=== PATIENT | female | born 1935 | race Caucasian/White ===

== ENCOUNTER 2016-06-13 07:45 | Day surgery (SDC) | payer MEDICARE, OTHER ==
[~2016-06-13] VITALS: Ht 149.9 cm; Wt 63.3 kg
[~2016-06-13 07:45] MED LIST: ASCO-296 PO; ASPI-611 PO; BISO1TAB PO; CALC-586 PO; LIDOCAINE 1% (10mg/ml) 2ml SDV INJ ONE; LR 1,000 ML IV PRN; MULT1CAP47 PO; NIFE60TA11 PO; OMEP20CA10 PO; PRAV20TA48 PO
--- OUTSIDE RECORDS SUMMARY | 2016-06-13 07:49 | XMS REPORT | Continuity of Care Document ---
Author Author Adeel PEÑA, Kimberly Cruz Organization [facility] Address [address] [place] [address] Phone Care Team Providers Care Office Administration Instructor Name Role Phone Reed, Dereck WILLIAM Unavailable Payers Payer name Insurance type Covered libertarian ID Authorization(s) Unknown Problems Condition Effective Dates (start - stop) Clinical Status Superficial thrombophlebitis - *Acute Edema - *Acute Symptomatic varicose veins - *Acute Hypertension - *Controlled Hypercholesterolemia - *Chronic VARICELLA UNCOMPLICATED - PURE HYPERCHOLESTEROLEM - ANEMIA NOS - 311 - DEPRESSIVE DISORDER NEC - CATARACT NOS - VARIC VEIN LEG,COMP NEC - EXT HEMORRHOID W/O COMPL - CONSTIPATION NOS - FEM STRESS INCONTINENCE - CRAMP IN LIMB - OSTEOPOROSIS NOS - MALAISE AND FATIGUE NEC - FX LUMBAR VERTEBRA-CLOSE - Other and unspecified hyperlipidemia - Chronic Hypertension, Benign - Chronic Radiculitis, Thoracic or Lumbar - Chronic 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 Backache - Chronic Age-related osteoporosis with current pathol fract - *Chronic Pathologic fracture of vertebrae - *Chronic Spinal stenosis - *Chronic Hypertension - *Chronic Hypercholesterolemia - *Chronic Atypical nevi - *Chronic Eczema - *Chronic Venous stasis dermatitis - *Chronic Hypertension - *Chronic Hypercholesterolemia - *Chronic Osteoporosis - *Chronic Benign neoplasm of skin of trunk, except scrotum - Other malignant neoplasm of skin of trunk, except scrotum - Basal cell cancer - *Chronic Atypical nevus - *Chronic Superficial phlebitis - *Acute GERD (gastroesophageal reflux disease) - *Acute Hypertension - *Chronic Elevated liver enzymes - *Acute Superficial phlebitis - *Acute Visit for suture removal - *Stable Backache - *Acute Radiculitis, Thoracic or Lumbar - *Acute Spinal stenosis of lumbar region - OldSymptomatic Lumbago - Improved Sciatica Due To Displacement Of Lumbar Disc - Improved Spinal stenosis of lumbar region - Improved Fx lumbar vertebra-closed - *Controlled Spinal stenosis of lumbar region - OldSymptomatic Radiculitis, Thoracic or Lumbar - *Acute History of hysterectomy - *Stable Hypertension, benign - *Chronic Hypercholesterolemia - *Chronic Osteoporosis - *Chronic Symptomatic varicose veins - *Chronic Tinea corporis - *Acute Adenomatous polyp of colon - *Stable Superficial phlebitis - Improved GERD (gastroesophageal reflux disease) - *Chronic Hypertension - *Chronic Elevated liver enzymes - *Resolved Family History Family Member Diagnosis Age At Onset Status Nephew (Unknown) CAD Yes Nephew (Unknown) IHSS Yes Father (Unknown) Cancer -leukemia Yes Cousin (Unknown) CAD Yes Family h/o (Unknown) Diabetes No Paternal uncle (Unknown) CAD Yes Mother (Unknown) Cancer -lymphoma Yes Cousin (Unknown) IHSS Yes Sister (Unknown) CHF Yes Family h/o (Unknown) Hypertension Yes Social History Social History Element Description Quantity Unknown Allergies, Adverse Reactions, Alerts Substance Reaction Severity Status ENOXAPARIN SODIUM elevated liver enzymes Unknown Medications Medication Instructions Dosage Effective Dates (start - stop) Status Anusol-HC 2.5 % rectal cream APPLY TO HEMORRHOIDS BID PRN. - Active aspirin 81 mg chewable tablet chew 1 tablet (81MG) by oral route every day 81 MG - Active Fish Oil (unknown strength) - Active iron ER 325 mg (65 mg iron) capsule,extended release take one tablet every day. - Active Adalat CC 60 mg tablet,extended release Take 1 tablet by mouth every day. - Active pravastatin 20 mg tablet Take 1 tablet by mouth at bedtime. - Active Ziac 2.5 mg-6.25 mg tablet Take 1 tablet by mouth daily - Active triamcinolone acetonide 0.1 % topical ointment apply by topical route 2 times every day a thin layer to the affected area(s) 0 - Active Klor-Con M20 mEq tablet,extended release take 1 tablet (20MEQ) by oral route every day with food 20 MEQ - Active Vitamin C 500 mg tablet take 1 Tablet by Oral route every day 0 2013 - Active Calcium with Vitamin D 600 mg (1,500 mg)-400 unit tablet take 1 Tablet by Oral route 3 times every week 0 - Active multivitamin capsule take 1 Tablet by Oral route 3 times every week 0 - Active Prilosec OTC 20 mg tablet,delayed release take 1 by Oral route every day - Active ibuprofen 200 mg tablet take 2 - 4Tablet (400MG) by oral route 2 times every day with food - Active Prolia 60 mg/mL subcutaneous syringe inject 60 Milligram by Subcutaneous route every 6 months 4th dose given 06/29/2013 0 - Active Immunizations Vaccine Date Status Comments flu (split) (3 yrs or older) completed - Completed reason: other provider flu (split) (3 yrs or older) completed - Completed reason: other provider Td (adult) completed - Completed reason: source unspecified Td (adult) completed - Completed reason: source unspecified pneumo (2 yrs or older) (PPV23) completed - Completed reason: source unspecified Zoster completed - Completed reason: source unspecified Results Test Name Date and Time Measure Units Reference Range Abnormal Flag Comments Panel Description: CBC WBC 14:58:00 4.2 1000/cmm 5.0-10.0 L RBC 14:58:00 4.00 mil/cmm 3.70-5.20 HGB 14:58:00 12.5 g/dL 12.0-16.0 HCT 14:58:00 36.5 % 37.0-47.0 L MCV 14:58:00 91.3 fL 80.0-96.0 MCH 14:58:00 31.3 pg 26.0-34.0 MCHC 14:58:00 34.2 g/dL 32.0-36.0 RDW 14:58:00 12.2 % 0.0-14.5 PLT 14:58:00 247 1000/cmm 150-400 SEG 14:58:00 71 % 50-70 H LYMPH 14:58:00 19 % 20-40 L MONO 14:58:00 10 % 4-8 H EOSIN 14:58:00 1 % <6 BASO 14:58:00 0 % <2 Panel Description: Protime Pt Type 14:58:00 BASIC Drug 14:58:00 No Meds Date-Time Last Meds 14:58:00 05/16/2013 2:49PM Protime-INR 14:58:00 1.0 Units Normal INR(no anticoagulant) 0.8-1.2 UnitsAbnormal INR (no anticoagulant) >1.2 UnitsRoutine Therapeutic INR 2.0-3.0 UnitsTherapeutic (High-Risk) INR 2.5-3.5 Units Vital Signs Date / Time: Height Weight Pulse Rate Blood Pressure Temperature /13:59:00 59.00 in 139.00 lbs 68 /min 104/62 mm[Hg] 99.2 F Procedures Procedure Date Unknown Encounters Encounter Location Date Patient Visit [facility] New FM Patient Visit Conversion Patient Visit [facility] FC Pain Patient Visit [facility] New FM Patient Visit [facility] FM [facility] Patient [facility] New FM Patient Visit [facility] New FM Patient Visit [facility] FM Patient Visit [facility] Patient Visit [facility] Pain Patient Visit [facility] Pain Patient Visit [facility] Pain Patient Visit [facility] FM Patient Visit [facility] FM Patient Visit [facility] New FM Patient Visit [facility] New FM Patient Visit [facility] Advance Directives Directive Effective Date Unknown
--- OUTSIDE RECORDS SUMMARY | 2016-06-13 07:49 | XMS REPORT | Continuity of Care Document ---
Author Author Adeel PEÑA, Kimberly [facility] Amb[facility] Address [address] [place] [address] Phone Care Team Providers Care College Or University Business Manager Name Role Phone Reed, Dereck WILLIAM Unavailable Payers Payer name Insurance type Covered alliance party ID Authorization(s) Unknown Problems Condition Effective Dates (start - stop) Clinical Status Benign neoplasm of skin of trunk, except scrotum - Other malignant neoplasm of skin of trunk, except scrotum - Basal cell cancer - *Chronic Atypical nevus - *Chronic VARICELLA UNCOMPLICATED - PURE HYPERCHOLESTEROLEM [...] *Chronic Hypercholesterolemia - *Chronic Osteoporosis - *Chronic Superficial phlebitis - *Acute GERD (gastroesophageal reflux disease) - *Acute Hypertension - *Chronic Elevated liver enzymes - *Acute Superficial phlebitis - *Acute Visit for suture removal - *Stable Backache - *Acute Radiculitis, Thoracic or Lumbar - *Acute Spinal stenosis of lumbar region - OldSymptomatic Superficial thrombophlebitis - *Acute Edema - *Acute Symptomatic varicose veins - *Acute Hypertension - *Controlled Hypercholesterolemia - *Chronic Lumbago - Improved Sciatica Due To Displacement [...] Dosage Effective Dates (start - stop) Status Vitamin C 500 mg tablet take 1 Tablet by Oral route every day 0 2013 - Active Calcium with Vitamin D 600 mg (1,500 mg)-400 unit tablet take 1 Tablet by Oral route 3 times every week 0 - Active multivitamin capsule take 1 Tablet by Oral route 3 times every week 0 - Active Anusol-HC 2.5 % rectal cream APPLY TO [...] day with food 20 MEQ - Active Prilosec OTC 20 mg tablet,delayed [...] Abnormal Flag Comments Panel Description: CBC WBC 08:54:00 4.8 1000/cmm 5.0-10.0 L RBC 08:54:00 4.29 mil/cmm 3.70-5.20 HGB 08:54:00 13.1 g/dL 12.0-16.0 HCT 08:54:00 38.7 % 37.0-47.0 MCV 08:54:00 90.2 fL 80.0-96.0 MCH 08:54:00 30.5 pg 26.0-34.0 MCHC 08:54:00 33.9 g/dL 32.0-36.0 RDW 08:54:00 12.2 % 0.0-14.5 PLT 08:54:00 253 1000/cmm 150-400 SEG 08:54:00 50 % 50-70 LYMPH 08:54:00 36 % 20-40 MONO 08:54:00 13 % 4-8 H EOSIN 08:54:00 1 % <6 BASO 08:54:00 0 % <2 Vital Signs Date / Time: Height Weight Pulse Rate Blood Pressure Temperature /07:22:00 59.00 in 136.20 lbs 78 /min 126/72 mm[Hg] 97.2 F Procedures Procedure Date EXC SKIN BENIG 0.6-1CM TRUNK,ARM,LEG EXC SKIN MALIG 1.1-2CM TRUNK,ARM,LEG SURGICAL TRAYS Encounters Encounter Location Date Patient Visit [facility] New FM Patient Visit Conversion Patient Visit [facility] FC Pain Patient Visit [facility] New FM Patient Visit [facility] New FM Patient Visit [facility] Patient Visit [facility] New FM Patient Visit [facility] New FM Patient Visit [facility] New FM Patient Visit [facility] Pain Patient Visit [facility] New FM Patient Visit [facility] Pain Patient [facility] Patient [facility] Patient [facility] FM Patient Visit [facility] FM Patient Visit [facility] FM Patient Visit [facility] FM Advance Directives Directive Effective Date Unknown
--- OUTSIDE RECORDS SUMMARY | 2016-06-13 07:49 | XMS REPORT | Referral Summary ---
Author Author [facility] Organization [facility] Address Unknown Phone Unavailable Care Team Providers Care Project Associate Name Role Phone Jhony Mcbride Primary Care Physician [phone] Encounter [facility] Date(s): 06/28/14 - 06/28/14 [facility] [address] [place] [address] JOANN Gomes [id number] Discharge Diagnosis: SENILE OSTEOPOROSIS Discharge Disposition: 01-Home or Self Care Attending Physician: Dereck Mcbride MD Admitting Physician: Dereck Mcbride MD Vital Signs Most recent to 1 oldest [Reference Range]: Temperature Tympanic 37.1 degC [36.6-38.1 degC] (06/28/14 4:08 PM) Peripheral Pulse 60 bpm Rate [60-100 bpm] (06/28/14 4:08 PM) Blood Pressure 142/82 mmHg [90-140/60-90 mmHg] *HI* (06/28/14 4:08 PM) Problem List Condition Effective Dates Status Health Status Informant Backache Active (finding)(Confirmed) Benign essential Active hypertension (disorder)(Confirmed ) BPPV (benign Active paroxysmal positional vertigo)(Confirmed) Bunion(Confirmed) 2001 Resolved Colon Resolved polyp(Confirmed) DDD (degenerative Active disc disease), lumbar(Confirmed) Hammertoe(Confirmed) 2001 Resolved High Resolved Cholesterol(Confirme d) Hypercholesterolemia Active (Confirmed) Hypertension(Confirm Resolved ed) Age related Active osteoporosis(Confirm ed) Prolapse(Confirmed) Resolved Venous stasis Active dermatitis(Confirmed ) Thoracic or Active lumbosacral neuritis or radiculitis(Confirme d) 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(Confir med) Allergies, Adverse Reactions, Alerts Substance Reaction Severity Status Lovenox Elevated liver function Active Medications Adalat CC 60 mg oral tablet, extended release See Instructions, TAKE ONE TABLET BY MOUTH ONCE A DAY, # 90 unknown unit, 2 Refill(s), eRx: [facility] #[id number], TAKE ONE TABLET BY MOUTH ONCE A DAY Start Date: 10/03/14 Status: Ordered Adalat CC 60 mg oral tablet, extended release 1 tabs, Oral, Daily, # 30 tabs, 0 Refill(s), other reason (Rx) Start Date: 08/04/13 Status: Ordered Anusol-HC 2.5% rectal cream with applicator 1 theresa, Rectal, BID, as needed for hemorrhoids to affected area, # 30 g, 0 Refill(s), other reason (Rx) Start Date: 08/04/13 Status: Ordered Aspirin Low Strength 81 mg, Oral, Daily, 0 Refill(s) Start Date: 07/31/13 Status: Ordered bisoprolol-hydrochlorothiazide 2.5 mg-6.25 mg oral tablet See Instructions, TAKE ONE TABLET BY MOUTH ONCE A DAY, # 90 tabs, 2 Refill(s), eRx: [facility] #[id number], TAKE ONE TABLET BY MOUTH ONCE A DAY Start Date: 08/07/14 Status: Ordered Calcium 600+D 600 mg-200 intl units oral tablet See Instructions, 1 tabs Oral 3 times a week, # 30 tabs, 0 Refill(s), other reason (Rx) Start Date: 08/04/13 Status: Ordered ferrous sulfate 325 mg (65 mg elemental iron) oral delayed release tablet See Instructions, 1 tabs Oral 3 times weekly, # 30 tabs, 0 Refill(s), other reason (Rx) Start Date: 08/04/13 Status: Ordered Fish Oil oral capsule 1 caps, Oral, Sun/We/Sa, # 100 caps, 0 Refill(s), other reason (Rx) Start Date: 08/04/13 Status: Ordered ibuprofen 200 mg oral tablet 2 tabs, Oral, Daily, as needed for fever, # 120 tabs, 0 Refill(s), Indication: for left leg pain Start Date: 07/31/13 Status: Ordered multivitamins oral tablet 1 tabs, Oral, Daily, # 30 tabs, 0 Refill(s), other reason (Rx) Start Date: 08/04/13 Status: Ordered pravastatin 20 mg oral tablet See Instructions, TAKE ONE TABLET BY MOUTH ONCE A DAY, # 90 tabs, eRx: [facility] #[id number], TAKE ONE TABLET BY MOUTH ONCE A DAY Start Date: 11/07/14 Status: Ordered Prolia 60 mg/mL subcutaneous solution 60 mg 1 mL, SubCutaneous, q6mo, 4th dose given 06/29/13 5th dose given 2013 6th dose given 06/28/2014 7th dose given 12/26/2014, # 1 mL, 0 Refill(s) , other reason (Rx) Start Date: 06/28/14 Stop Date: 06/29/15 Status: Ordered Vitamin C 500 mg oral tablet 1 tabs, Oral, Daily, # 30 tabs, 0 Refill(s), other reason (Rx) Start Date: 08/04/13 Status: Ordered Results No data available for this section Immunizations Vaccine Date Refusal Reason influenza virus vaccine, inactivated 11/29/14 influenza virus vaccine, live 11/17/12 influenza virus vaccine, live 11/26/11 pneumococcal 23-polyvalent vaccine 06/26/00 tetanus-diphth toxoids (Td) adult/adol 06/25/06 tetanus-diphth toxoids (Td) adult/adol 01/19/97 zoster vaccine live 02/15/07 Procedures Procedure Date Related Diagnosis Body Site Ambulatory Phlebectomy Left Leg 01/06/14 EVLT Left GSV/SSV 12/30/13 Colonoscopic polypectomy1 09/19/13 Colonoscopic polypectomy2 09/19/13 Rt L4-5 Translaminar 11/19/11 Excision of RT Ingrown Toenail 2010 Cataract extraction and insertion of 2009 intraocular lens3 Esophagogastroduodenoscopy4 11/04/07 Colonoscopy with polypectomy5 2007 A and P Vaginal Repair 2006 Colporrhaphy for repair of cystocele and 2006 rectocele Bunionectomy Rt 2002 Cataract left 2002 Hammertoe Surgery 2002 Eyelid Surgery 1995 Appendectomy 1974 CHEIKH - Total abdominal hysterectomy with one 1974 salpingo oophorectomy Hemorrhoidectomy 1958 Tonsillectomy 1951 Tubular adenoma6 1Hyperplastic polyp, no need to repeat unless symptoms warrant 2Hyperplastic polyp, melanosis coli, likely not need to repeat unless symptoms warrant 3right eye 4normal 5tubular adenoma,, repeat in 5 years 6Showing tubular adenoma plan repeat colonoscopy in 5 years 11-03-2012 Social History Social History Type Response Smoking Status Never smoker Assessment and Plan No data available for this section
--- OUTSIDE RECORDS SUMMARY | 2016-06-13 07:49 | XMS REPORT | Referral Summary ---
Author Author [facility] Organization [facility] Address Unknown Phone Unavailable Care Team Providers Care Oil Spreader Operator Name Role Phone Jhony Mcbride Primary Care Physician [phone] Encounter Date(s): 01/01/16 - 01/01/16 [facility] [address] [place] [address] Discharge Diagnosis: BPPV (benign paroxysmal positional vertigo) Discharge Diagnosis: BPPV (benign paroxysmal positional vertigo) Discharge Diagnosis: Benign essential hypertension (disorder) Discharge Diagnosis: Primary hypercholesterolemia Discharge Diagnosis: Osteoporosis Discharge Diagnosis: Tendinitis, de Quervain's Discharge Diagnosis: Chronic thoracic back pain Discharge Disposition: 01-Home or Self Care Attending Physician: Dereck Mcbride MD Admitting Physician: Dereck Mcbride MD Vital Signs Most recent to 1 oldest [Reference Range]: Temperature Tympanic 36.9 degC [36.6-38.1 degC] (01/01/16 1:45 PM) Peripheral Pulse 56 bpm Rate [60-100 bpm] *LOW* (01/01/16 1:45 PM) Blood Pressure 156/74 mmHg [90-140/60-90 mmHg] *HI* (01/01/16 1:45 PM) Problem List Condition Effective Dates Status Health Status Informant Backache Active (finding)(Confirmed) Benign essential Active hypertension (disorder)(Confirmed ) BPPV (benign Active paroxysmal positional vertigo)(Confirmed) Bunion(Confirmed) 2001 Resolved Colon Resolved polyp(Confirmed) DDD (degenerative Active disc disease), lumbar(Confirmed) Hammertoe(Confirmed) 2001 Resolved High Resolved Cholesterol(Confirme d) Hypercholesterolemia Active (Confirmed) Hypertension(Confirm Resolved ed) Venous stasis Active dermatitis(Confirmed ) Age related Active osteoporosis(Confirm ed) Prolapse(Confirmed) Resolved Thoracic or Active lumbosacral neuritis or radiculitis(Confirme d) 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(Confir med) Allergies, Adverse Reactions, Alerts Substance Reaction Severity Status Lovenox Elevated liver function Active Medications acetaminophen 1,000 mg, Oral, BID, as needed for pain, 0 Refill(s) Start Date: 10/02/15 Status: Ordered Aspirin Low Strength 81 mg, Oral, Daily, 0 Refill(s) Start Date: 07/31/13 Status: Ordered bisoprolol-hydrochlorothiazide 2.5 mg-6.25 mg oral tablet See Instructions, TAKE ONE TABLET BY MOUTH ONCE A DAY, # 90 tabs, 1 Refill(s), eRx: [facility] #[id number], TAKE ONE TABLET BY MOUTH ONCE A DAY Start Date: 11/13/15 Status: Ordered Calcium 600+D 600 mg-200 intl [...] Fish Oil oral capsule 1 caps, Oral, Daily, # 100 caps, 0 Refill(s), other reason (Rx) Start Date: 08/04/13 Status: Ordered ibuprofen 200 mg oral tablet 400 mg 2 tabs, Oral, BID, as needed for pain, # 120 tabs, 0 Refill(s), Indication: for left leg pain Start Date: 07/31/13 Status: Ordered multivitamins oral tablet 1 tabs, Oral, Daily, # 30 tabs, 0 Refill(s), other reason (Rx) Start Date: 08/04/13 Status: Ordered NIFEdipine 60 mg oral tablet, extended release See Instructions, TAKE ONE TABLET BY MOUTH ONCE A DAY, # 90 unknown unit, 2 Refill(s), eRx: [facility] #[id number], TAKE ONE TABLET BY MOUTH ONCE A DAY Start Date: 10/02/15 Status: Ordered pravastatin 20 mg oral tablet See Instructions, TAKE ONE TABLET BY MOUTH ONCE A DAY, # 90 tabs, 3 Refill(s), eRx: [facility] #[id number], TAKE ONE TABLET BY MOUTH ONCE A DAY Start Date: 08/13/15 Status: Ordered Prolia 60 mg/mL subcutaneous solution 60 mg 1 mL, SubCutaneous, q6mo, 4th dose given 06/29/13 5th dose given 2013 6th dose given 06/28/2014 7th dose given 12/26/2014 8th dose given 06/25, # 1 mL, 0 Refill(s), other reason (Rx) Start Date: 06/28/14 Stop Date: 06/29/15 Status: Ordered Vitamin C 500 mg oral tablet 1 tabs, Oral, Daily, # 30 tabs, 0 Refill(s), other reason (Rx) Start Date: 08/04/13 Status: Ordered Results No data available for this section Immunizations Vaccine Date Refusal Reason influenza virus vaccine, inactivated1 12/03/15 influenza virus vaccine, inactivated 11/29/14 influenza virus vaccine, live 11/17/12 influenza virus vaccine, live 11/26/11 pneumococcal 13-valent conjugate vaccine 07/24/15 pneumococcal 23-polyvalent vaccine 06/26/00 tetanus-diphth toxoids (Td) adult/adol 06/25/06 tetanus-diphth toxoids (Td) adult/adol 01/19/97 zoster vaccine live 02/15/07 1Result Comment: [12/05/2015] High dose Jonathan Procedures Procedure Date Related Diagnosis Body Site [...] left 2002 Hammertoe Surgery 2002 Eyelid Surgery 1996 Appendectomy 1974 CHEIKH - Total abdominal hysterectomy with one 1974 salpingo oophorectomy Hemorrhoidectomy 195 Tonsillectomy 1951 Tubular adenoma6 1Hyperplastic polyp, no need to repeat unless symptoms warrant 2Hyperplastic polyp, melanosis coli, likely not need to repeat unless symptoms warrant 3right eye 4normal 5tubular adenoma,, repeat in 5 years 6Showing tubular adenoma plan repeat colonoscopy in 5 years 11-03-2012 Social History Social History Type Response Smoking Status Never smoker Assessment and Plan Extracted from: Title: Ambulatory Patient Education Author: Dereck Mcbride MD Date: 12/31 Preventive Medicine Back Exercises Back exercises help treat and prevent back injuries. The goal of back exercises is to increase the strength of your abdominal and back muscles and the flexibility of your back. These exercises should be started when you no longer have back pain. Back exercises include: Pelvic Tilt. Lie on your back with your knees bent. Tilt your pelvis until the lower part of your back is against the floor. Hold this position 5 to 10 sec and repeat 5 to 10 times. Knee to Chest. Pull first 1 knee up against your chest and hold for 20 to 30 seconds, repeat this with the other knee, and then both knees. This may be done with the other leg straight or bent, whichever feels better. Sit-Ups or Curl-Ups. Bend your knees 90 degrees. Start with tilting your pelvis, and do a partial, slow sit-up, lifting your trunk only 30 to 45 degrees off the floor. Take at least 2 to 3 seconds for each sit-up. Do not do sit-ups with your knees out straight. If partial sit-ups are difficult, simply do the above but with only tightening your abdominal muscles and holding it as directed. Hip-Lift. Lie on your back with your knees flexed 90 degrees. Push down with your feet and shoulders as you raise your hips a couple inches off the floor; hold for 10 seconds, repeat 5 to 10 times. Back arches. Lie on your stomach, propping yourself up on bent elbows. Slowly press on your hands, causing an arch in your low back. Repeat 3 to 5 times. Any initial stiffness and discomfort should lessen with repetition over time. Shoulder-Lifts. Lie face down with arms beside your body. Keep hips and torso pressed to floor as you slowly lift your head and shoulders off the floor. Do not overdo your exercises, especially in the beginning. Exercises may cause you some mild back discomfort which lasts for a few minutes; however, if the pain is more severe, or lasts for more than 15 minutes, do not continue exercises until you see your caregiver. Improvement with exercise therapy for back problems is slow. See your caregivers for assistance with developing a proper back exercise program. This information is not intended to replace advice given to you by your health care provider. Make sure you discuss any questions you have with your health care provider. Document Released: 03/26/2005 Document Revised: 05/10/2012 Document Reviewed: [employer] Patient Education 2016 [employer] No follow up information was provided. Extracted from: Title: several medical problems Author: Dereck Mcbride MD Date: 01/01/16 Impression and Plan Diagnosis Benign essential hypertension (disorder) (IAM35-XL I10, Discharge, Medical). BPPV (benign paroxysmal positional vertigo) (TRB93-QR H81.10, Discharge, Medical ). Chronic thoracic back pain (UER90-RY M54.6, Discharge, Medical). Osteoporosis (FZT09-UE M81.0, Discharge, Medical). Primary hypercholesterolemia (EXN29-VB E78.00, Discharge, Medical). Tendinitis, de Quervain's (NXA58-JN M65.4, Discharge, Medical). Plan: 1) PT ordered for your right thoracic back pain. 2) DEXA bone density test to be scheduled around June 30, 2016 due to osteoporosis. 3) Xrays were obtained of your left wrist. 4) Wear the thumb spica splint on the left wrist as much as you can, for pain relief. 5) See me back in 6 weeks for a recheck, and as needed. 6) Use heat to the back off and on. 7) You might alternate heat and ice to the left wrist as needed. 8) You may continue your routine meds.. Orders Orders (Selected) Outpatient Orders Ordered Office Visit Level 5 Est 52274: Wrist hand finger orthosis, without joint(s), prefabricated, includes fitting L3807: Ordered (Exam Completed) XR Wrist Complete Left: Canceled DEXA Axial Skeleton, BD Bone Density: Discontinued Office Visit Level 4 Est 11576: Future (On Hold) DEXA Axial Skeleton, BD Bone Density: . Dx/Order Association Plan: Diagnosis: BPPV (benign paroxysmal positional vertigo) Comment: Ordered: Office Visit Level 5 Est 14846; 01/01/16 13:13:00 CDT, Tendinitis, de Quervain's | Chronic thoracic back pain | Osteoporosis | Benign essential hypertension (disorder) | Primary hypercholesterolemia | BPPV (benign paroxysmal positional vertigo) Diagnosis: Benign essential hypertension (disorder) Comment: Ordered: Office Visit Level 5 Est 30226; 01/01/16 13:13:00 CDT, Tendinitis, de Quervain's | Chronic thoracic back pain | Osteoporosis | Benign essential hypertension (disorder) | Primary hypercholesterolemia | BPPV (benign paroxysmal positional vertigo) Discontinued: Office Visit Level 4 Est 83831; 01/01/16 12:57:00 CDT, Tendinitis, de Quervain's | Chronic thoracic back pain | Osteoporosis | Benign essential hypertension (disorder) | Primary hypercholesterolemia | BPPV ( benign paroxysmal positional vertigo) Diagnosis: Chronic thoracic back pain Comment: Ordered: Office Visit Level 5 Est 54669; 01/01/16 13:13:00 CDT, Tendinitis, de Quervain's | Chronic thoracic back pain | Osteoporosis | Benign essential hypertension (disorder) | Primary hypercholesterolemia | BPPV (benign paroxysmal positional vertigo) Discontinued: Office Visit Level 4 Est 25424; 01/01/16 12:57:00 CDT, Tendinitis, de Quervain's | Chronic thoracic back pain | Osteoporosis | Benign essential hypertension (disorder) | Primary hypercholesterolemia | BPPV ( benign paroxysmal positional vertigo) Diagnosis: Osteoporosis Comment: Ordered: Office Visit Level 5 Est 39147; 01/01/16 13:13:00 CDT, Tendinitis, de Quervain's | Chronic thoracic back pain | Osteoporosis | Benign essential hypertension (disorder) | Primary hypercholesterolemia | BPPV (benign paroxysmal positional vertigo) Discontinued: Office Visit Level 4 Est 95786; 01/01/16 12:57:00 CDT, Tendinitis, de Quervain's | Chronic thoracic back pain | Osteoporosis | Benign essential hypertension (disorder) | Primary hypercholesterolemia | BPPV ( benign paroxysmal positional vertigo) Diagnosis: Primary hypercholesterolemia Comment: Ordered: Office Visit Level 5 Est 93600; 01/01/16 13:13:00 CDT, Tendinitis, de Quervain's | Chronic thoracic back pain | Osteoporosis | Benign essential hypertension (disorder) | Primary hypercholesterolemia | BPPV (benign paroxysmal positional vertigo) Discontinued: Office Visit Level 4 Est 55725; 01/01/16 12:57:00 CDT, Tendinitis, de Quervain's | Chronic thoracic back pain | Osteoporosis | Benign essential hypertension (disorder) | Primary hypercholesterolemia | BPPV ( benign paroxysmal positional vertigo) Diagnosis: Tendinitis, de Quervain's Comment: Ordered: Wrist hand finger orthosis, without joint(s), prefabricated, includes fitting L3807; 01/01/16 14:43:00 CDT, Tendinitis, de Quervain's, 1 Office Visit Level 5 Est 14901; 01/01/16 13:13:00 CDT, Tendinitis, de Quervain's | Chronic thoracic back pain | Osteoporosis | Benign essential hypertension (disorder) | Primary hypercholesterolemia | BPPV ( benign paroxysmal positional vertigo) Discontinued: Office Visit Level 4 Est 10518; 01/01/16 12:57:00 CDT, Tendinitis, de Quervain's | Chronic thoracic back pain | Osteoporosis | Benign essential hypertension (disorder) | Primary hypercholesterolemia | BPPV ( benign paroxysmal positional vertigo) Other status: XR Wrist Complete Left; 01/01/16 13:05:00 CDT, Routine, Stop date 01/01/16 13:05:00 CDT, Reason: Pain in joint wrist, Tendinitis, de Quervain's, ABN Status: Not Required (Status Change) Diagnosis: Osteoporosis Comment: End of Orders ."
--- OUTSIDE RECORDS SUMMARY | 2016-06-13 07:49 | XMS REPORT | Referral Summary ---
Author Author [facility] Organization [facility] Address Unknown Phone Unavailable Care Team Providers Care Beef Cattle Farmer Name Role Phone Jhony Mcbride Primary Care Physician [phone] Encounter VC Date(s): 12/26/14 - 12/26/14 [facility] [address] [place] [address] [place] [id number] Discharge Disposition: 01-Home or Self Care Attending Physician: Dereck Mcbride MD Admitting Physician: Dereck Mcbride MD Vital Signs Most recent to 1 oldest [Reference Range]: Temperature Tympanic 36.4 degC [36.6-38.1 degC] *LOW* (12/26/14 11:28 AM) Peripheral Pulse 60 bpm Rate [60-100 bpm] (12/26/14 11:28 AM) Blood Pressure 138/70 mmHg [90-140/60-90 mmHg] (12/26/14 11:28 AM) Problem List Condition Effective Dates Status Health [...] # 90 unknown unit, 2 Refill(s), eRx: [facility] #[id number], TAKE ONE TABLET BY MOUTH ONCE A [...] DAY, # 90 tabs, 2 Refill(s), eRx: [facility] #[id number], TAKE ONE TABLET BY MOUTH ONCE A [...] ONCE A DAY, # 90 tabs, eRx: [facility] #[id number], TAKE ONE TABLET BY MOUTH ONCE A [...]
--- OUTSIDE RECORDS SUMMARY | 2016-06-13 07:49 | XMS REPORT | Referral Summary ---
Author Organization Unknown Address Unknown Phone Unavailable Care Team Providers Care Hoop Punch And Coiler Operator Helper Name Role Phone Jhony Mcbride Primary Care Physician [phone] Encounter VC Date(s): 06/28/14 - 06/28/14 [facility], Internal Medicine [address] [place] [address] [place] [id number] Discharge Diagnosis: SENILE OSTEOPOROSIS Discharge Disposition: Home or Self Care Attending Physician: Dereck Mcbride [...] 30 g, 0 Refill(s), other reason (Rx) Special Instructions: as needed for hemorrhoids to affected area Start Date: 08/04/13 Status: Ordered Aspirin Low Strength 81 mg, Oral, Daily, 0 Refill(s) Start Date: 07/31/13 Status: Ordered bisoprolol-hydrochlorothiazide 2.5 mg-6.25 mg oral tablet 1 tabs, Oral, Daily, # 90 tabs, 0 Refill(s), other reason (Rx) Start Date: 08/04/13 Status: Ordered Calcium 600+D 600 mg-200 intl units oral tablet See Instructions, 1 tabs Oral 3 times a week, # 30 tabs, 0 Refill(s), other reason (Rx) Special Instructions: 1 tabs Oral 3 times a week Start Date: 08/04/13 Status: Ordered ferrous sulfate 325 mg (65 mg elemental iron) oral delayed release tablet See Instructions, 1 tabs Oral 3 times weekly, # 30 tabs, 0 Refill(s), other reason (Rx) Special Instructions: 1 tabs Oral 3 times weekly Start Date: 08/04/13 Status: Ordered Fish Oil [...] Status: Ordered pravastatin 20 mg oral tablet 1 tabs, Oral, Daily, # 90 tabs, 0 Refill(s), other reason (Rx) Start Date: 08/04/13 Status: Ordered Prolia 60 mg/mL subcutaneous solution 1 mL, SubCutaneous, q6mo, 4th dose given 06/29/13 5th dose given 12/28/2013 6th dose given 06/28/2014, # 1 mL, 0 Refill(s), other reason (Rx) Special Instructions: 4th dose given 06/29/13 5th dose given 12/28/2013 6th dose given 06/28/2014 Start Date: 06/28/14 Stop Date: 06/29/15 Status: Ordered Vitamin C 500 mg oral tablet 1 tabs, Oral, Daily, # 30 tabs, 0 Refill(s), other reason (Rx) Start Date: 08/04/13 Status: Ordered Results No data available for this section Immunizations Vaccine Date Refusal Reason influenza virus vaccine, live 11/17/12 influenza virus [...] Rt 2002 Cataract left 2002 Hammertoe Surgery 2001 Eyelid Surgery 1996 Appendectomy 1974 CHEIKH - [...]
--- OUTSIDE RECORDS SUMMARY | 2016-06-13 07:50 | XMS REPORT | Referral Summary ---
Author Author [facility] Organization [facility] Address Unknown Phone Unavailable Care Team Providers Care Foot Cutter Name Role Phone Jhony Mcbride Primary Care Physician [phone] Encounter VC Date(s): 10/02/15 - 10/02/15 [facility] [address] [place] [address] Discharge Disposition: 01-Home or Self Care Attending Physician: Dereck Mcbride MD Admitting Physician: Dereck Mcbride MD Vital Signs Most recent to 1 oldest [Reference Range]: Temperature Tympanic 35.9 degC [36.6-38.1 degC] *LOW* (10/02/15 8:58 AM) Peripheral Pulse 56 bpm Rate [60-100 bpm] *LOW* (10/02/15 8:58 AM) Blood Pressure 134/66 mmHg [90-140/60-90 mmHg] (10/02/15 8:58 AM) Problem List Condition Effective Dates Status [...] 0 Refill(s) Start Date: 10/02/15 Status: Ordered Anusol-HC 2.5% rectal cream with [...] ONCE A DAY, # 90 tabs, eRx: [facility] #[id number], TAKE ONE TABLET BY MOUTH ONCE A DAY Start Date: 08/03/15 Status: Ordered Calcium 600+D 600 mg-200 intl [...] # 90 unknown unit, 2 Refill(s), eRx: [facility] #[id number], TAKE ONE TABLET BY MOUTH ONCE A DAY Start Date: 10/02/15 Status: Ordered pravastatin 20 mg oral tablet See Instructions, TAKE ONE TABLET BY MOUTH ONCE A DAY, # 90 tabs, 3 Refill(s), eRx: [facility] #[id number], TAKE ONE TABLET BY MOUTH ONCE A [...] intraocular lens3 Esophagogastroduodenoscopy4 11/04/07 Colonoscopy with polypectomy5 2008 A and P Vaginal Repair 2006 Colporrhaphy for repair of cystocele and 2006 rectocele Bunionectomy Rt 2002 Cataract left 2002 Hammertoe Surgery 2002 Eyelid Surgery 1996 Appendectomy 1974 CHEIKH - Total abdominal hysterectomy with one 1974 salpingo oophorectomy Hemorrhoidectomy 1958 Tonsillectomy 195 Tubular adenoma6 1Hyperplastic polyp, no need to [...] Patient Education Author: Dereck Mcbride MD Date: Family Medicine Back Pain, Adult Back pain is very common in adults.The cause of back pain is rarely dangerous and the pain often gets better over time.The cause of your back pain may not be known. Some common causes of back pain include: Strain of the muscles or ligaments supporting the spine. Wear and tear (degeneration) of the spinal disks. Arthritis. Direct injury to the back. For many people, back pain may return. Since back pain is rarely dangerous, most people can learn to manage this condition on their own. HOME CARE INSTRUCTIONS Watch your back pain for any changes. The following actions may help to lessen any discomfort you are feeling: Remain active. It is stressful on your back to sit or sign painter helper one place for long periods of time. Do not sit, drive, or sign painter helper one place for more than 30 minutes at a time. Take short walks on even surfaces as soon as you are able.Try to increase the length of time you walk each day. Exercise regularly as directed by your health care provider. Exercise helps your back heal faster. It also helps avoid future injury by keeping your muscles strong and flexible. Do not stay in bed.Resting more than 12 days can delay your recovery. Pay attention to your body when you bend and lift. The most comfortable positions are those that put less stress on your recovering back. Always use proper lifting techniques, including: Bending your knees. Keeping the load close to your body. Avoiding twisting. Find a comfortable position to sleep. Use a firm mattress and lie on your side with your knees slightly bent. If you lie on your back, put a pillow under your knees. Avoid feeling anxious or stressed.Stress increases muscle tension and can worsen back pain.It is important to recognize when you are anxious or stressed and learn ways to manage it, such as with exercise. Take medicines only as directed by your health care provider. Over-the- counter medicines to reduce pain and inflammation are often the most helpful. Your health care provider may prescribe muscle relaxant drugs.These medicines help dull your pain so you can more quickly return to your normal activities and healthy exercise. Apply ice to the injured area: Put ice in a plastic bag. Place a towel between your skin and the bag. Leave the ice on for 20 minutes, 23 times a day for the first 23 days. After that, ice and heat may be alternated to reduce pain and spasms. Maintain a healthy weight. Excess weight puts extra stress on your back and makes it difficult to maintain good posture. SEEK MEDICAL CARE IF: You have pain that is not relieved with rest or medicine. You have increasing pain going down into the legs or buttocks. You have pain that does not improve in one week. You have night pain. You lose weight. You have a fever or chills. SEEK IMMEDIATE MEDICAL CARE IF: You develop new bowel or bladder control problems. You have unusual weakness or numbness in your arms or legs. You develop nausea or vomiting. You develop abdominal pain. You feel faint. This information is not intended to replace advice given to you by your health care provider. Make sure you discuss any questions you have with your health care provider. Document Released: 02/16/2006 Document Revised: 03/09/2015 Document Reviewed: [facility] Patient Information 2016 [employer]'. No follow up information was provided. Extracted from: Title: thoracic back pain and other Author: Dereck Mcbride MD Date: problems Impression and Plan Diagnosis Benign essential hypertension (disorder) (ABK02-JQ I10, Working, Medical). Hypercholesterolemia (FPE18-II E78.0, Working, Medical). Varicose veins of lower extremities with complications (ROB09-LU I83.893, Working, Medical). Age related osteoporosis (LQW54-ZP M81.0, Working, Medical). Venous stasis dermatitis (GPR87-FQ I87.2, Working, Medical). Acute thoracic back pain (EGQ72-ZV M54.6, Working, Medical). Plan: 1) Continue your present meds. 2) Heat, water exercises and walking will be helpful. 3) PT offered and declined. 4) Avoid Ibuprofen. 5) Continue your routine meds otherwise. 6) Expect resolution of this strained muscle in the next month. 7) Followup as needed if not getting better, or if you worsen, and as needed... Orders Orders (Selected) Outpatient Orders Ordered Office Visit Level 4 Est 12205: Future (On Hold) Basic Metabolic Panel: . Dx/Order Association Plan: Diagnosis: Acute thoracic back pain Comment: Ordered: Office Visit Level 4 Est 33520; 10/02/15 9:21:00 CDT, Acute thoracic back pain | Benign essential hypertension (disorder) | Age related osteoporosis | Hypercholesterolemia | Varicose veins of lower extremities with complications Diagnosis: Age related osteoporosis Comment: Ordered: Office Visit Level 4 Est [id number]; 10/02/15 9:21:00 CDT, Acute thoracic back pain | Benign essential hypertension (disorder) | Age related osteoporosis | Hypercholesterolemia | Varicose veins of lower extremities with complications Diagnosis: Benign essential hypertension (disorder) Comment: Ordered: Office Visit Level 4 Est [id number]; 10/02/15 9:21:00 CDT, Acute thoracic back pain | Benign essential hypertension (disorder) | Age related osteoporosis | Hypercholesterolemia | Varicose veins of lower extremities with complications Diagnosis: Hypercholesterolemia Comment: Ordered: Office Visit Level 4 Est [id number]; 10/02/15 9:21:00 CDT, Acute thoracic back pain | Benign essential hypertension (disorder) | Age related osteoporosis | Hypercholesterolemia | Varicose veins of lower extremities with complications Diagnosis: Varicose veins of lower extremities with complications Comment: Ordered: Office Visit Level 4 Est [id number]; 10/02/15 9:21:00 CDT, Acute thoracic back pain | Benign essential hypertension (disorder) | Age related osteoporosis | Hypercholesterolemia | Varicose veins of lower extremities with complications Diagnosis: Venous stasis dermatitis Comment: End of Orders ."
--- OUTSIDE RECORDS SUMMARY | 2016-06-13 07:50 | XMS REPORT | Continuity of Care Document ---
Author Author [facility] Organization [facility] Address Unknown Phone Unavailable Allergies Medications Problems Procedures Results Encounters ACCT No. Visit Date/Time Discharge Status Pt. Type Provider Facility Loc./Unit Complaint [id number] 06/02/2013 13:24:00 06/02/2013 23 :59:59 CLS Outpatient [id number] 06/01/2013 09:39:00 06/01/2013 23 :59:59 CLS Outpatient [id number] 05/23/2013 09:05:00 05/23/2013 23 :59:59 CLS Outpatient [id number] 05/18/2013 07:22:00 05/18/2013 23 :59:59 CLS Outpatient [id number] 05/16/2013 13:43:00 05/16/2013 23 :59:59 CLS Outpatient [id number] 04/12/2013 08:19:00 04/12/2013 23 :59:59 CLS Outpatient
--- OUTSIDE RECORDS SUMMARY | 2016-06-13 07:50 | XMS REPORT | Referral Summary ---
Author Author [facility] Organization [facility] Address Unknown Phone Unavailable Care Team Providers Care Vegetable Loader Machine Operator Name Role Phone Jhony Mcbride Primary Care Physician [phone] Encounter VC Date(s): 12/26/14 - 12/26/14 [facility] [address] [place] [address] [place] [address] Discharge Disposition: 01-Home or Self Care Attending [...] Status Lovenox Elevated liver function Active Medications Anusol-HC 2.5% rectal cream with applicator 1 [...] ONCE A DAY, # 90 tabs, eRx: [facility] #[id number], TAKE ONE TABLET BY MOUTH ONCE A DAY Start Date: 05/14/15 Status: Ordered Calcium 600+D 600 mg-200 intl [...] ONCE A DAY, # 90 unknown unit, eRx: [facility] #[id number], TAKE ONE TABLET BY MOUTH ONCE A DAY Start Date: 07/03/15 Status: Ordered pravastatin 20 mg oral tablet See Instructions, TAKE ONE TABLET BY MOUTH ONCE A DAY, # 90 tabs, eRx: [facility] #[id number], TAKE ONE TABLET BY MOUTH ONCE A DAY Start Date: 05/14/15 Status: Ordered Prolia 60 mg/mL subcutaneous solution [...] one 1974 salpingo oophorectomy Hemorrhoidectomy 195 Tonsillectomy 195 Tubular adenoma6 1Hyperplastic polyp, no [...]
--- OUTSIDE RECORDS SUMMARY | 2016-06-13 07:50 | XMS REPORT | Continuity of Care Document ---
Author Author [facility] Organization [facility] Address Unknown Phone Unavailable Support Name Relationship Address Phone VIBHA HALEY FACS, MD Caregiver [address] [place] [address] [place] [phone] RAVI VELAZCO MD Caregiver [address] [place] [address] [place] [address] [phone] [place] YOUSSEF Next Of Kin [address] [place] [address] Insurance Providers Payer Name Policy Number Subscriber Name Relationship Medicare [id number] Anette Price 18 Self [place] [id number] Anette Price 18 Self Advance Directives Directive Response Recorded Date/Time Advanced Directives Type DPOA for Healthcare 09/16/13 3:02pm Ordered Resuscitation Status Full Code 09/16/13 4:25pm Resuscitation Documents on File Yes 09/16/13 3:02pm Problems No known problems or medical conditions. Medications Medication Dose Route Sig Days/Qty Instructions Order Date Discontinued Date Status Bisoprol/Hydrochlorothiazide 1 Tab PO DAILY 04/05/08 Active Nifedipine 60 Mg PO DAILY 04/05/08 Active Multivitamins W-Minerals 1 Cap PO DAILY 04/05/08 Active Aspirin 81 Mg PO DAILY 09/16/13 Active Calcium Carbonate/Vitamin D3 1 Tab PO DAILY 09/16/13 Active Pravastatin Sodium 20 Mg PO BEDTIME 09/16/13 Active Ascorbic Acid 500 Mg PO DAILY 09/16/13 Active Social History Social History Problem Response Recorded Date/Time Smoking Status Never smoker 09/19/2013 9:10am Chewing Tobacco Status No 09/19/2013 9:10am Hx Substance Use No 09/19/2013 9:10am Hx Alcohol Use No 09/19/2013 9:10am Has the pt used tobacco in the last 12 months No 09/19/2013 9:10am Query Response Start Date Stop Date Smoking Status Never smoker Hospital Discharge Instructions No hospital discharge instructions. Plan of Care No plan of care. Functional Status No functional status results. Allergies, Adverse Reactions, Alerts Allergen Type Severity Reaction Status Last Updated Enoxaparin Allergy Unknown ELEVATED LIVER FUNCTION Active 09/16/13 Immunizations Name Given Type Hx Influenza Vaccination Y FALL 2012 Historical Hx Pneumococcal Vaccination Y WITHIN PAST 5 YEARS Historical Hx Influenza Vaccination Y FALL 2012 Historical Vital Signs Acute Vital Signs Vital Response Date/Time Temperature (Fahrenheit) 97.2 deg F (96.8 - 99.1) Temperature (Calculated Celsius) 36.12271 degrees C (36.0 - 37.3) Temperature Source Temporal Pulse Rate (adult) 57 bpm (60 - 100) Respiratory Rate 14 breaths/min (10 - 20) O2 Sat by Pulse Oximetry 96 % (90 - 100) Blood Pressure 137/68 mm Hg Blood Pressure Source Automatic Cuff Height 5 ft 0 in Weight 129 lb Body Mass Index 25.0 kg/m^2 Results Test Source Date Result Interp. Ref. Range Comments Alanine Aminotransferase (ALT/SGPT) May 16, 2013 2:53pm 43 U/L N 9-52 Albumin May 16, 2013 2:53pm 4.3 G/DL N 3.5-5.0 Albumin/Globulin Ratio May 16, 2013 2:53pm 1.7 RATIO N 1.1-2.2 Alkaline Phosphatase May 16, 2013 2:53pm 59 U/L N 38-126 Anion Gap May 16, 2013 2:53pm 11 MEQ/L N 5-15 Aspartate Amino Transf (AST/SGOT) May 16, 2013 2:53pm 57 U/L H 14-36 BUN/Creatinine Ratio May 16, 2013 2:53pm 23 RATIO N 6-26 Blood Urea Nitrogen May 16, 2013 2:53pm 18.0 MG/DL H 7-17 Calcium Level May 16, 2013 2:53pm 8.7 MG/DL N 8.4-10.2 Calculated Osmolality May 16, 2013 2:53pm 273 MOSM/KG N 261-280 Carbon Dioxide Level May 16, 2013 2:53pm 29 MEQ/L N 22-30 Chloride Level May 16, 2013 2:53pm 101 MEQ/L N 98-107 Creatinine May 16, 2013 2:53pm 0.8 MG/DL N 0.7-1.2 D-Dimer May 16, 2013 2:53pm 975 NG/ML H 0-400 <400 NG/ML=PRESUMPTIVE NEGATIVE FOR PE OR DVT>400 NG/ML=ADDITIONAL EVALUATION FOR PE OR DVT RECOMMENDED Globulin May 16, 2013 2:53pm 2.5 G/DL N 2.4-3.6 Glucose Level May 16, 2013 2:53pm 97 MG/DL N 65-110 Potassium Level May 16, 2013 2:53pm 3.3 MEQ/L L 3.6-5 Sodium Level May 16, 2013 2:53pm 141 MEQ/L N 134-144 Total Bilirubin May 16, 2013 2:53pm 0.20 MG/DL N 0.20-1.30 Total Protein May 16, 2013 2:53pm 6.8 G/DL N 6.3-8.2 Chemistry Specimen Hemolysis May 16, 2013 2:53pm < 15 0-25 0-25: No Hemolysis.26-70: Slight Hemolysis - can falsely elevate K and Urine Protein. 71-285: Moderate Hemolysis - can falsely elevate K, Troponin I, CA 19-9, PTH, CSF GLucose, and Urine Protein, and can falsely decrease Phenytoin. 286-999: Gross Hemolysis - can falsely elevate K, Troponin I, CA 19-9, PTH, CSF Glucose, and Urine Protine, and can falsely decrease Phenytoin. Recommend specimen recollection. Lab Scanned Report May 16, 2013 7:26pm LAB TEST FORM REQUEST [id number] - Turbidity May 16, 2013 2:53pm < 20 0-20 Glomerular Filtration Rate Calc May 16, 2013 2:53pm 69 - Icterus Index May 16, 2013 2:53pm < 2 0-7 Procedures Procedure Status Date Provider(s) Colonoscopy with polypectomy and biopsy completed 09/19/13 VIBHA HALEY MD, FACS, CWS
--- OUTSIDE RECORDS SUMMARY | 2016-06-13 07:50 | XMS REPORT | Referral Summary ---
Author Author [facility] Organization [facility] Address Unknown Phone Unavailable Care Team Providers Care Fur Joiner Name Role Phone Jhony Mcbride Primary Care Physician [phone] Encounter VC Date(s): 12/26/14 - 12/26/14 [facility] [address] [place] [address] [place] [id number] Discharge Disposition: 01-Home or Self Care Attending Physician: Dereck Mcbride MD Admitting Physician: Dereck Mcbrdie MD Vital Signs Most recent to 1 [...] # 90 unknown unit, 2 Refill(s), eRx: [facility] #[id number], TAKE ONE TABLET BY MOUTH ONCE A [...] DAY, # 90 tabs, 2 Refill(s), eRx: [facility] #[id number], TAKE ONE TABLET BY MOUTH ONCE A [...] ONCE A DAY, # 90 tabs, eRx: [facility] #[id number], TAKE ONE TABLET BY MOUTH ONCE A [...]
--- OUTSIDE RECORDS SUMMARY | 2016-06-13 07:50 | XMS REPORT | Referral Summary ---
Author Organization Unknown Address Unknown Phone Unavailable Care Team Providers Care Line Out Man Name Role Phone Jhony Mcbride Primary Care Physician [phone] Encounter VC Date(s): 03/24/14 - 03/24/14 [facility], [facility]UB[facility], E , Phlebology (Venous Disease) [address], [place] [address] Discharge Diagnosis: Chronic venous hypertension involving left side Discharge Disposition: Home or Self Care Attending Physician: Fred Valdivia MD Admitting Physician: Fred Valdivia MD Vital Signs No data available for this section Problem List Condition Effective Dates Status Health [...] 4th dose given 06/29/13 5th dose given 12/28/2013, # 1 mL, 0 Refill(s) Special Instructions: 4th dose given 06/29/13 5th dose given 12/28/2013 Start Date: 07/31/13 Status: Ordered Vitamin C 500 mg oral [...] left 2002 Hammertoe Surgery 2001 Eyelid Surgery 1995 Appendectomy 1974 CHEIKH - Total abdominal hysterectomy with one 1973 salpingo oophorectomy Hemorrhoidectomy 1958 Tonsillectomy 195 Tubular [...] Extracted from: Title: Ambulatory Patient Education Author: Fred Valdivia MD Date: 03/24 Family Medicine Venous Stasis and Chronic Venous Insufficiency As people age, the veins located in their legs may weaken and stretch. When veins weaken and lose the ability to pump blood effectively, the condition is called chronic venous insufficiency (CVI) or venous stasis . Almost all veins return blood back to the heart. This happens by: The force of the heart pumping fresh blood pushes blood back to the heart. Blood flowing to the heart from the force of gravity. In the deep veins of the legs, blood has to fight gravity and flow upstream back to the heart. Here, the leg muscles contract to pump blood back toward the heart. Vein rose are elastic, and many veins have small valves that only allow blood to flow in one direction. When leg muscles contract, they push inward against the elastic vein rose. This squeezes blood upward, opens the valves, and moves blood toward the heart. When leg muscles relax, the vein wall also relaxes and the valves inside the vein close to prevent blood from flowing backward. This method of pumping blood out of the legs is called the venous pump . CAUSES The venous pump works best while walking and leg muscles are ced. But when a person sits or stands, blood pressure in leg veins can build. Deep veins are usually able to withstand short periods of inactivity, but long periods of inactivity (and increased pressure) can stretch, weaken, and damage vein rose. High blood pressure can also stretch and damage vein rose. The veins may no longer be able to pump blood back to the heart. Venous hypertension (high blood pressure inside veins) that lasts over time is a primary cause of CVI. CVI can also be caused by: Deep vein thrombosis , a condition where a thrombus (blood clot) blocks blood flow in a vein. Phlebitis , an inflammation of a superficial vein that causes a blood clot to form. Other risk factors for CVI may include: Heredity. Obesity. . Sedentary lifestyle. Smoking. Jobs requiring long periods of standing or sitting in one place. Age and gender: Women in their 40's and 50's and men in their 70's are more prone to developing CVI. SYMPTOMS Symptoms of CVI may include: Varicose veins. Ulceration or skin breakdown. Lipodermatosclerosis , a condition that affects the skin just above the ankle, usually on the inside surface. Over time the skin becomes brown, smooth , tight and often painful. Those with this condition have a high risk of developing skin ulcers. Reddened or discolored skin on the leg. Swelling. DIAGNOSIS Your caregiver can diagnose CVI after performing a careful medical history and physical examination. To confirm the diagnosis, the following tests may also be ordered: Duplex ultrasound. Plethysmography (tests blood flow). Venograms (x-ray using a special dye). TREATMENT The goals of treatment for CVI are to restore a person to an active life and to minimize pain or disability. Typically, CVI does not pose a serious threat to life or limb, and with proper treatment most people with this condition can continue to lead active lives. In most cases, mild CVI can be treated on an outpatient basis with simple procedures. Treatment methods include: Elastic compression socks. Sclerotherapy , a procedure involving an injection of a material that "dissolves" the damaged veins. Other veins in the network of blood vessels take over the function of the damaged veins. Vein stripping (an older procedure less commonly used). Laser Ablation surgery. Valve repair. HOME CARE INSTRUCTIONS Elastic compression socks must be worn every day. They can help with symptoms and lower the chances of the problem getting worse, but they do not cure the problem. Only take [id number] or prescription medicines for pain, discomfort, or fever as directed by your caregiver. Your caregiver will review your other medications with you. SEEK MEDICAL CARE IF: You are confused about how to take your medications. There is redness, swelling, or increasing pain in the affected area. There is a red streak or line that extends up or down from the affected area. There is a breakdown or loss of skin in the affected area, even if the breakdown is small. You develop an unexplained oral temperature above 102 F (38.9 C). There is an injury to the affected area. SEEK IMMEDIATE MEDICAL CARE IF: There is an injury and open wound to the affected area. Pain is not adequately relieved with pain medication prescribed or becomes severe. An oral temperature above 102 F (38.9 C) develops. The foot/ankle below the affected area becomes suddenly numb or the area feels weak and hard to move. MAKE SURE YOU: Understand these instructions. Will watch your condition. Will get help right away if you are not doing well or get worse. Document Released: 06/22/2007 Document Revised: 05/10/2012 Document Reviewed: [facility] Patient Information 2014 [employer] [facility]. No follow up information was provided. Extracted from: Title: Office Visit Note Author: Fred Valdivia MD Date: 03/24/14 Assessment/Plan Chronic venous hypertension involving left side The patient is doing well after endovenous ablation of her left great and small saphenous vein with follow -up ambulatory phlebectomy of painful tributary varicosities. The patient will resume activity on an ad aris. basis and come back to vein clinic if she has any further questions or problems. Otherwise we will see her back when necessary. Referrals to Other Providers Referred by: Fred Valdivia MD
--- OUTSIDE RECORDS SUMMARY | 2016-06-13 07:50 | XMS REPORT | Referral Summary ---
Author Author [facility], Family Medicine Organization [facility] Address Unknown Phone Unavailable Care Team Providers Care Coating Mixer Tender Name Role Phone Jhony Mcbride Primary Care Physician [phone] Encounter VC Date(s): 03/11/16 - 03/11/16 [facility] [address] [place] [id number]- Discharge Diagnosis: Acute pansinusitis Discharge Diagnosis: Acute bronchitis Discharge Diagnosis: Benign essential hypertension (disorder) Discharge Diagnosis: De Quervain's tenosynovitis Discharge Diagnosis: Primary hypercholesterolemia Discharge Diagnosis: Foot callus Discharge Diagnosis: Osteoporosis Discharge Diagnosis: Chronic thoracic back pain Discharge Diagnosis: Hammertoe Discharge Diagnosis: BPPV (benign paroxysmal positional vertigo) Discharge Disposition: 01-Home or Self Care Attending Physician: Dereck Mcbride MD Admitting Physician: Dereck Mcbride MD Vital Signs Most recent to 1 oldest [Reference Range]: Temperature Tympanic 36.9 degC [36.6-38.1 degC] (03/11/16 10:23 AM) Peripheral Pulse 68 bpm Rate [60-100 bpm] (03/11/16 10:23 AM) Blood Pressure 116/52 mmHg [90-140/60-90 mmHg] (03/11/16 10:23 AM) Problem List Condition Effective Dates Status Health Status Informant [place](Confirmed) 2001 Resolved Backache Active (finding)(Confirmed) Benign essential Active hypertension (disorder)(Confirmed ) BPPV (benign Active paroxysmal positional vertigo)(Confirmed) Bunion(Confirmed) 2001 Resolved Colon Resolved polyp(Confirmed) DDD (degenerative Active disc disease), lumbar(Confirmed) High Resolved Cholesterol(Confirme d) Hypercholesterolemia Active (Confirmed) [...] DAY, # 90 tabs, 1 Refill(s), eRx: [facility] #[id number], TAKE ONE TABLET BY MOUTH ONCE A DAY Start Date: 11/13/15 Status: Ordered Calcium 600+D 600 mg-200 intl units oral tablet See Instructions, 1 tabs Oral daily, # 30 tabs, 0 Refill(s), other reason [...] Status: Ordered ibuprofen 200 mg oral tablet 800 mg 4 tabs, Oral, BID, as needed for headache and achiness, # 120 tabs, 0 Refill(s), Indication: for left leg pain Start Date: 07/31/13 Status: Ordered multivitamins oral tablet 1 tabs, Oral, Daily, # 30 tabs, 0 Refill(s), other reason (Rx) Start Date: 08/04/13 Status: Ordered NIFEdipine 60 mg oral tablet, extended release See Instructions, TAKE ONE TABLET BY MOUTH ONCE A DAY, # 90 unknown unit, 2 Refill(s), eRx: [facility] #[id number], TAKE ONE TABLET BY MOUTH ONCE A DAY Start Date: 10/02/15 Status: Ordered pravastatin 20 mg oral tablet See Instructions, TAKE ONE TABLET BY MOUTH ONCE A DAY, # 90 tabs, 3 Refill(s), eRx: [facility] #[id number], TAKE ONE TABLET BY MOUTH ONCE A [...] No data available for this section Immunizations Given and Recorded Vaccine Date Status Refusal Reason influenza virus vaccine, inactivated1 12/03/15 Recorded influenza virus vaccine, inactivated 11/29/14 Recorded influenza virus vaccine, live 11/17/12 Given influenza virus vaccine, live 11/26/11 Given pneumococcal 13-valent conjugate vaccine 07/24/15 Given pneumococcal 23-polyvalent vaccine 06/26/00 Recorded tetanus-diphth toxoids (Td) adult/adol 06/25/06 Given tetanus-diphth toxoids (Td) adult/adol 01/19/97 Given zoster vaccine live 02/15/07 Given 1Result Comment: [12/05/2015] High dose [facility] Procedures Procedure Date Related Diagnosis Body Site Paring or cutting of benign hyperkeratotic 03/11/16 lesion (eg, corn or callus); single lesion Ambulatory Phlebectomy Left Leg 01/06/14 EVLT Left [...] Patient Education Author: Dereck Mcbride MD Date: 03/11 Musculoskeletal De Quervain's Tenosynovitis Surgical Release Surgery for de Quervain's tenosynovitis is done to relieve swelling and pain in the wrist and thumb. The swelling and pain was caused by inflammation (the body's way of reacting to injury or infection). The inflammation occurred at the covering (sheath) around the tendons (tough cords of tissue). The sheath was opened during surgery. This opening gives the tendons more space to move. Once you recover from the surgery, the pain you used to feel should be improved. Normal movement of your wrist and thumb should return. Most of the time, surgery for de Quervain's tenosynovitis is an outpatient procedure. That means you will go home the same day. LET YOUR CAREGIVER KNOW ABOUT: Any allergies. Medicines taken including herbs, eyedrops, prescription medicines ( especially blood thinners [anticoagulants]), aspirin and other [id number]-[id number] medicines and steroids (by mouth or cream). Previous problems with anesthetics or medicines used to numb the skin. Possibility of , if this applies. Any history of blood clots in your legs or lungs. Any history of bleeding or other blood problems. Previous surgery. Other important health problems. RISKS AND COMPLICATIONS Pain at the incision site. Blood that pools under the incision (hematoma). Infection at the incision site. Swelling. Allergic reaction to the anesthesia. A return of pain or stiffness in the thumb. Rarely, nerve injury. BEFORE SURGERY Two weeks before your surgery, stop using aspirin and non-steroidal anti- inflammatory drugs (NSAIDs) for pain relief. This includes prescription drugs and [id number] anti-inflammatory drugs. Also stop taking vitamin E. If you take anticoagulants, ask your caregiver when you should stop taking them. Stop smoking. Do not eat or drink for about 8 hours before your surgery. Arrive at least an hour before the surgery, or whenever your surgeon recommends. This will give you time to check in and fill out any paperwork. Your surgery will probably be an outpatient procedure. That means you will go home the same day. Make arrangements in advance for someone to drive you home. THE PROCEDURE You will be given a local anesthetic or regional anesthetic so you do not feel pain. Your thumb and wrist area will be numbed, but you will still be awake. The surgeon will make a cut (incision) in the wrist. Then, the sheath that wraps around the tendons will be opened. This gives the tendons inside the sheath more room. There will be less pressure on them, and that helps relieve the pain. If there are small sacs filled with fluid (cysts) or other inflamed tissues, they can be removed during the surgery. The incision will be closed with small stitches. This will be covered with a dressing (a piece of gauze). A splint or brace will be put on your wrist and thumb area to keep it from moving. AFTER SURGERY You will stay in a recovery area until the anesthesia has worn off. Your blood pressure and pulse will be checked often. Once your body functions are back to normal, you will be able to go home. You will have a splint or brace on your wrist and thumb area. The surgeon will give you a prescription for pain medication to keep you comfortable. Before you are sent home, you will be shown how to care for the area around the cut (incision) that was made during surgery. Make sure you know how often the bandage (dressing) should be changed. You also need to know when the splint and dressing can be taken off for good. Ask whether you will need physical or occupational therapy. If so, ask about referrals. Be patient. It will take a few weeks before you can use your wrist and thumb normally again. This information is not intended to replace advice given to you by your health care provider. Make sure you discuss any questions you have with your health care provider. Document Released: 07/05/2009 Document Revised: 05/10/2012 Document Reviewed: [employer] Patient Education 2016 [employer] De Quervain's Tenosynovitis De Quervain's tenosynovitis involves inflammation of one or two tendon linings ( sheaths) or strain of one or two tendons to the thumb: extensor pollicis brevis (EPB), or abductor pollicis longus (APL). This causes pain on the side of the wrist and base of the thumb. Tendon sheaths secrete a fluid that lubricates the tendon, allowing the tendon to move smoothly. When the sheath becomes inflamed, the tendon cannot move freely in the sheath. Both the EPB and APL tendons are important for proper use of the hand. The EPB tendon is important for straightening the thumb. The APL tendon is important for moving the thumb away from the index finger (abducting). The two tendons pass through a small tube ( canal) in the wrist, near the base of the thumb. When the tendons become inflamed, pain is usually felt in this area. SYMPTOMS Pain, tenderness, swelling, warmth, or redness over the base of the thumb and thumb side of the wrist. Pain that gets worse when straightening the thumb. Pain that gets worse when moving the thumb away from the index finger, against resistance. Pain with pinching or gripping. Locking or catching of the thumb. Limited motion of the thumb. Crackling sound (crepitation) when the tendon or thumb is moved or touched. Fluid-filled cyst in the area of the base of the thumb. CAUSES Tenosynovitis is often linked with overuse of the wrist. Tenosynovitis may be caused by repeated injury to the thumb muscle and tendon units, and with repeated motions of the hand and wrist, due to friction of the tendon within the lining (sheath). Tenosynovitis may also be due to a sudden increase in activity or change in activity. RISK INCREASES WITH: Sports that involve repeated hand and wrist motions (golf, bowling, tennis, squash, racquetball). Heavy labor. Poor physical wrist strength and flexibility. Failure to warm up properly before practice or play. Female gender. New mothers who hold their baby's head for long periods or lift infants with thumbs in the 's armpit (axilla). PREVENTION Warm up and stretch properly before practice or competition. Allow enough time for rest and recovery between practices and competition. Maintain appropriate conditioning: Cardiovascular fitness. Forearm, wrist, and hand flexibility. Muscle strength and endurance. Use proper exercise technique. PROGNOSIS This condition is usually curable within 6 weeks, if treated properly with non- surgical treatment and resting of the affected area. RELATED COMPLICATIONS Longer healing time if not properly treated or if not given enough time to heal. Chronic inflammation, causing recurring symptoms of tenosynovitis. Permanent pain or restriction of movement. Risks of surgery: infection, bleeding, injury to nerves (numbness of the thumb), continued pain, incomplete release of the tendon sheath, recurring symptoms, cutting of the tendons, tendons sliding out of position, weakness of the thumb, thumb stiffness. TREATMENT First, treatment involves the use of medicine and ice, to reduce pain and inflammation. Patients are encouraged to stop or modify activities that aggravate the injury. Stretching and strengthening exercises may be advised. Exercises may be completed at home or with a therapist. You may be fitted with a brace or splint, to limit motion and allow the injury to heal. Your caregiver may also choose to give you a corticosteroid injection, to reduce the pain and inflammation. If non-surgical treatment is not successful, surgery may be needed. Most tenosynovitis surgeries are done as outpatient procedures (you go home the same day). Surgery may involve local, regional (whole arm), or general anesthesia. MEDICATION If pain medicine is needed, nonsteroidal anti-inflammatory medicines ( aspirin and ibuprofen), or other minor pain relievers (acetaminophen), are often advised. Do not take pain medicine for 7 days before surgery. Prescription pain relievers are often prescribed only after surgery. Use only as directed and only as much as you need. Corticosteroid injections may be given if your caregiver thinks they are needed. There is a limited number of times these injections may be given. COLD THERAPY Cold treatment (icing) should be applied for 10 to 15 minutes every 2 to 3 hours for inflammation and pain, and immediately after activity that aggravates your symptoms. Use ice packs or an ice massage. SEEK MEDICAL CARE IF: Symptoms get worse or do not improve in 2 to 4 weeks, despite treatment. You experience pain, numbness, or coldness in the hand. Blue, cruz, or dark color appears in the fingernails. Any of the following occur after surgery: increased pain, swelling, redness, drainage of fluids, bleeding in the affected area, or signs of infection. New, unexplained symptoms develop. (Drugs used in treatment may produce side effects.) This information is not intended to replace advice given to you by your health care provider. Make sure you discuss any questions you have with your health care provider. Document Released: 02/16/2006 Document Revised: 05/10/2012 Document Reviewed: [employer] Patient Education 2016 [employer] Podiatry Corns and Calluses Corns are small areas of thickened skin that occur on the top, sides, or tip of a toe. They contain a cone-shaped core with a point that can press on a nerve below. This causes pain. Calluses are areas of thickened skin that can occur anywhere on the body including hands, fingers, palms, soles of the feet, and heels.Calluses are usually larger than corns. CAUSES Corns and calluses are caused by rubbing (friction) or pressure, such as from shoes that are too tight or do not fit properly. RISK FACTORS Corns are more likely to develop in people who have toe deformities, such as hammer toes. Since calluses can occur with friction to any area of the skin, calluses are more likely to develop in people who: Work with their hands. Wear shoes that fit poorly, shoes that are too tight, or shoes that are high-heeled. Have toes deformities. SYMPTOMS Symptoms of a corn or callus include: A hard growth on the skin. Pain or tenderness under the skin. Redness and swelling. Increased discomfort while wearing tight-fitting shoes. DIAGNOSIS Corns and calluses may be diagnosed with a medical history and physical exam. TREATMENT Corns and calluses may be treated with: Removing the cause of the friction or pressure. This may include: Changing your shoes. Wearing shoe inserts (orthotics) or other protective layers in your shoes , such as a corn pad. Wearing gloves. Medicines to help soften skin in the hardened, thickened areas. Reducing the size of the corn or callus by removing the layers of skin. Antibiotic medicines to treat infection. Surgery, if a toe deformity is the cause. HOME CARE INSTRUCTIONS Take medicines only as directed by your health care provider. If you were prescribed an antibiotic, finish all of it even if you start to feel better. Wear shoes that fit well. Avoid wearing high-heeled shoes and shoes that are too tight or too loose. Wear any padding, protective layers, gloves, or orthotics as directed by your health care provider. Soak your hands or feet and then use a file or pumice stone to soften your corn or callus. Do this as directed by your health care provider. Check your corn or callus every day for signs of infection. Watch for: Redness, swelling, or pain. Fluid, blood, or pus. SEEK MEDICAL CARE IF: Your symptoms do not improve with treatment. You have increased redness, swelling, or pain at the site of your corn or callus. You have fluid, blood, or pus coming from your corn or callus. You have new symptoms. This information is not intended to replace advice given to you by your health care provider. Make sure you discuss any questions you have with your health care provider. Document Released: 11/22/2004 Document Revised: 07/03/2015 Document Reviewed: [employer] Patient Education 2016 [employer] No follow up information was provided. Extracted from: Title: several problems Author: Dereck Mcbride MD Date: 03/11/16 Impression and Plan Diagnosis De Quervain's tenosynovitis (KLJ13-LW M65.4, Discharge, Medical). BPPV (benign paroxysmal positional vertigo) (RZJ00-SC H81.10, Discharge, Medical ). Benign essential hypertension (disorder) (OZB10-LS I10, Discharge, Medical). Chronic thoracic back pain (GUR99-FK M54.6, Discharge, Medical). Osteoporosis (KKQ60-FB M81.0, Discharge, Medical). Primary hypercholesterolemia (PJI08-DT E78.00, Discharge, Medical). Hammertoe (GZT35-FV M20.42, Discharge, Medical). Foot callus (CYV63-CY L84, Discharge, Medical). Acute bronchitis (ENR96-UM J20.9, Discharge, Medical). Acute pansinusitis (IPY59-ON J01.40, Discharge, Medical). Plan: 1) Occupational therapy or orthopedic consult (for a cortisone injection ) are recommended for your left wrist tendinitis. 2) The left second toe callus on the dorsum of the left second hammertoe was trimmed manually by me with a #15 scalpel blade. 3) Wear corn pads routinely and get big enough shoes. You may see a propeller tester as desired. 4) Continue your present meds. 5) Get enough rest to get over your viral sinusitis and bronchitis. 6) See me back in 6 months and as needed.. Orders Orders (Selected) Outpatient Orders Ordered Office Visit Level 4 Est 52811: Paring/Cutting Hypkeratotic Lesion, Single 13022: Future (On Hold) BD Bone Density DEXA Axial Skeleton: . Dx/Order Association Plan: Diagnosis: Acute bronchitis Comment: Modified: Office Visit Level 4 Est [id number]; 03/11/16 10:14:00 CARE SERVICES MANAGER, 25, Hammertoe | De Quervain's tenosynovitis | Benign essential hypertension ( disorder) | BPPV (benign paroxysmal positional vertigo) | Osteoporosis | Primary hypercholesterolemia | Chronic thoracic back pain | Acute bronchitis | ... Diagnosis: Acute pansinusitis Comment: Modified: Office Visit Level 4 Est [id number]; 03/11/16 10:14:00 CARE SERVICES MANAGER, 25, Hammertoe | De Quervain's tenosynovitis | Benign essential hypertension ( disorder) | BPPV (benign paroxysmal positional vertigo) | Osteoporosis | Primary hypercholesterolemia | Chronic thoracic back pain | Acute bronchitis | ... Diagnosis: BPPV (benign paroxysmal positional vertigo) Comment: Modified: Office Visit Level 4 Est [id number]; 03/11/16 10:14:00 CARE SERVICES MANAGER, 25, Hammertoe | De Quervain's tenosynovitis | Benign essential hypertension ( disorder) | BPPV (benign paroxysmal positional vertigo) | Osteoporosis | Primary hypercholesterolemia | Chronic thoracic back pain | Acute bronchitis | ... Diagnosis: Benign essential hypertension (disorder) Comment: Modified: Office Visit Level 4 Est [id number]; 03/11/16 10:14:00 CARE SERVICES MANAGER, 25, Hammertoe | De Quervain's tenosynovitis | Benign essential hypertension ( disorder) | BPPV (benign paroxysmal positional vertigo) | Osteoporosis | Primary hypercholesterolemia | Chronic thoracic back pain | Acute bronchitis | ... Diagnosis: Chronic thoracic back pain Comment: Modified: Office Visit Level 4 Est 26722; 03/11/16 10:14:00 CARE SERVICES MANAGER, 25, Hammertoe | De Quervain's tenosynovitis | Benign essential hypertension ( disorder) | BPPV (benign paroxysmal positional vertigo) | Osteoporosis | Primary hypercholesterolemia | Chronic thoracic back pain | Acute bronchitis | ... Diagnosis: De Quervain's tenosynovitis Comment: Modified: Office Visit Level 4 Est [id number]; 03/11/16 10:14:00 CARE SERVICES MANAGER, 25, Hammertoe | De Quervain's tenosynovitis | Benign essential hypertension ( disorder) | BPPV (benign paroxysmal positional vertigo) | Osteoporosis | Primary hypercholesterolemia | Chronic thoracic back pain | Acute bronchitis | ... Diagnosis: Foot callus Comment: Ordered: Paring/Cutting Hypkeratotic Lesion, Single 51513; 10:14:00 CARE SERVICES MANAGER, 1, Foot callus Diagnosis: Hammertoe Comment: Modified: Office Visit Level 4 Est [id number]; 03/11/16 10:14:00 CARE SERVICES MANAGER, 25, Hammertoe | De Quervain's tenosynovitis | Benign essential hypertension ( disorder) | BPPV (benign paroxysmal positional vertigo) | Osteoporosis | Primary hypercholesterolemia | Chronic thoracic back pain | Acute bronchitis | ... Diagnosis: Osteoporosis Comment: Modified: Office Visit Level 4 Est [id number]; 03/11/16 10:14:00 CARE SERVICES MANAGER, 25, Hammertoe | De Quervain's tenosynovitis | Benign essential hypertension ( disorder) | BPPV (benign paroxysmal positional vertigo) | Osteoporosis | Primary hypercholesterolemia | Chronic thoracic back pain | Acute bronchitis | ... Diagnosis: Primary hypercholesterolemia Comment: Modified: Office Visit Level 4 Est [id number]; 03/11/16 10:14:00 CARE SERVICES MANAGER, 25, Hammertoe | De Quervain's tenosynovitis | Benign essential hypertension ( disorder) | BPPV (benign paroxysmal positional vertigo) | Osteoporosis | Primary hypercholesterolemia | Chronic thoracic back pain | Acute bronchitis | ... End of Orders ."
--- OUTSIDE RECORDS SUMMARY | 2016-06-13 07:50 | XMS REPORT | Continuity of Care Document ---
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 [...] nevus - *Chronic Superficial phlebitis - *Acute Visit for suture [...] Dosage Effective Dates (start - stop) Status Prilosec OTC 20 mg tablet,delayed release take 1 by Oral route every day - Active Anusol-HC 2.5 % rectal cream [...] 3 times every week 0 - Active ibuprofen 200 mg tablet take [...] Abnormal Flag Comments Panel Description: CBC WBC 09:06:00 4.4 K/uL 4.8-10.8 L RBC 09:06:00 4.09 M/uL 4.00-5.20 HGB 09:06:00 12.7 g/dl 12.0-16.0 HCT 09:06:00 37.1 % 37.0-47.0 MCV 09:06:00 90.7 fL 82.0-99.0 MCH 09:06:00 31.1 pg 27.0-32.0 MCHC 09:06:00 34.2 g/dL 32.0-36.0 RDW 09:06:00 12.1 % 11.5-14.5 MPV 09:06:00 12.3 fL 8.8-14.8 Platelet Count 09:06:00 288 K/uL 150-400 Immature Granulocytes 09:06:00 0.2 % 0.0-1.0 Absolute Neutrophils 09:06:00 2.20 THOUS 1.90-7.00 Absolute Lymphocytes 09:06:00 1.57 THOUS 0.80-3.30 Absolute Monocytes 09:06:00 0.47 THOUS 0.30-1.00 Absolute Eosinophils 09:06:00 0.11 THOUS 0.00-0.50 Absolute Basophils 09:06:00 0.03 THOUS 0.00-0.20 Neutrophils 09:06:00 50 % 51-75 L Lymphocytes 09:06:00 36 % 20-46 Monocytes 09:06:00 11 % 4-11 Eosinophils 09:06:00 3 % 0-4 Basophils 09:06:00 1 % 0-2 Testing performed at [facility] [address] [address] Ivf Embryologist Edgar Karimi MD Panel Description: Chemistry Profile Glucose 09:06:00 94 mg/dL 70-99 BUN 09:06:00 16 mg/dL 10-20 Creatinine 09:06:00 0.74 mg/dL 0.57-1.11 Calcium 09:06:00 9.7 mg/dL 8.9-10.5 Sodium 09:06:00 136 mEq/L 135-144 Potassium 09:06:00 4.3 mEq/L 3.5-5.2 Chloride 09:06:00 102 mEq/L 99-111 CO2 09:06:00 26 mEq/L 22-31 Albumin 09:06:00 4.2 g/dL 3.4-4.8 Bilirubin Total 09:06:00 0.5 mg/dL 0.2-1.2 Alkaline Phosphatase 09:06:00 52 U/L 40-150 Protein 09:06:00 6.3 g/dL 6.2-8.1 ALT (SGPT) 09:06:00 118 U/L 0-55 H AST (SGOT) 09:06:00 120 U/L 5-34 H Anion Gap 09:06:00 8 3-20 Globulin 09:06:00 2.1 g/dL 1.8-4.0 Testing performed at [facility] [address] [place] [address] Ivf Embryologist Edgar Karimi MD Panel Description: EGFR-[facility] eGFR 09:06:00 >60 mL/min >60 Multiply eGFR results by 1.21 for race.Testing performed at [facility] [address] [place] [address] Ivf Embryologist Edgar Karimi MD Vital Signs Date / Time: Height Weight Pulse Rate Blood Pressure Temperature /09:06:00 59.00 in 135.00 lbs 86 /min 110/60 mm[Hg] 98.0 F Procedures Procedure Date Unknown Encounters Encounter Location Date Patient Visit [facility] New FM Patient Visit Conversion Patient Visit [facility] Pain Patient Visit [facility] New FM Patient Visit [facility] New FM Patient Visit [facility] New FM Patient [facility] New FM Patient [facility] New FM Patient [facility] FM Patient [facility] Pain Patient [facility] New FM Patient Visit [facility] Pain Patient Visit [facility] Pain Patient [facility] New FM Patient [facility] FM Patient [facility] New FM Patient Visit [facility] New FM Patient Visit [facility] New FM Advance Directives Directive Effective Date Unknown
--- OUTSIDE RECORDS SUMMARY | 2016-06-13 07:50 | XMS REPORT | Continuity of Care Document ---
Author Author Cynthia Page [facility] Ambulatory Address Unknown Phone Unavailable Care Team Providers Care Hand Outside Cutter Name Role Phone ReedDereck herron STEWART Unavailable Payers Payer name Insurance type Covered democrat ID Authorization(s) Unknown Problems Condition Effective Dates (start - stop) Clinical Status Atypical nevi - *Chronic Eczema - *Chronic Venous stasis dermatitis - *Chronic Hypertension - *Chronic Hypercholesterolemia - *Chronic Osteoporosis - *Chronic VARICELLA UNCOMPLICATED - PURE HYPERCHOLESTEROLEM [...] *Chronic Hypertension - *Chronic Hypercholesterolemia - *Chronic Benign neoplasm of skin of trunk, except scrotum - Other malignant neoplasm of skin of trunk, except scrotum - Basal cell cancer - *Chronic Atypical nevus - *Chronic Backache - *Acute Radiculitis, Thoracic or Lumbar [...] *Acute Adenomatous polyp of colon - *Stable Family History Family Member Diagnosis Age At [...] Adverse Reactions, Alerts Substance Reaction Severity Status Unknown Medications Medication Instructions Dosage Effective Dates (start - stop) Status Adalat CC 60 mg tablet,extended release Take 1 tablet by mouth every day. - Active pravastatin 20 mg tablet Take 1 tablet by mouth at bedtime. - Active triamcinolone acetonide 0.1 % topical ointment apply by topical route 2 times every day a thin layer to the affected area(s) 0 - Active Ziac 2.5 mg-6.25 mg tablet Take 1 tablet by mouth daily - Active Anusol-HC 2.5 % rectal cream APPLY TO HEMORRHOIDS BID PRN. - Active aspirin 81 mg chewable tablet chew 1 tablet (81MG) by oral route every day 81 MG - Active Fish Oil (unknown strength) - Active iron ER 325 mg (65 mg iron) capsule,extended release take one tablet every day. - Active Prolia 60 mg/mL subcutaneous syringe inject 60 Milligram by Subcutaneous route every 6 months 3rd dose given 12/22/2012 0 - Active Klor-Con M20 mEq tablet,extended [...] 3 times every week 0 - Active Immunizations Vaccine Date Status [...] Measure Units Reference Range Abnormal Flag Comments Unknown Vital Signs Date / Time: Height Weight Pulse Rate Blood Pressure Temperature /08:19:00 59.00 in 137.00 lbs 72 /min 138/68 mm[Hg] 97.8 F Procedures Procedure Date Unknown Encounters Encounter Location Date Patient Visit [facility] FM Patient Visit Conversion Patient Visit [facility] Pain Patient Visit [facility] Patient Visit [facility] Patient Visit [facility] Patient Visit [facility] Patient [facility] Patient [facility] Patient Visit [facility] Patient Visit [facility] Patient Visit [facility] Patient [facility] New FM Patient Visit [facility] FM Patient Visit [facility] FM Advance Directives Directive Effective Date Unknown
--- OUTSIDE RECORDS SUMMARY | 2016-06-13 07:50 | XMS REPORT | Referral Summary ---
Author Author [facility] Organization [facility] Address Unknown Phone Unavailable Care Team Providers Care Aboriginal Education Teacher Name Role Phone Jhony Mcbride Primary Care Physician [phone] Encounter VC Date(s): 07/24/15 - 07/24/15 [facility] [address] [place] [address] Discharge Disposition: 01-Home or Self Care Attending Physician: Dereck Mcbride MD Admitting Physician: Dereck Mcbride MD Vital Signs Most recent to 1 oldest [Reference Range]: Temperature Tympanic 36.0 degC [36.6-38.1 degC] *LOW* (07/24/15 9:49 AM) Peripheral Pulse 60 bpm Rate [60-100 bpm] (07/24/15 9:49 AM) Respiratory Rate 16 br/min [14-20 br/min] (07/24/15 9:49 AM) Blood Pressure 148/80 mmHg [90-140/60-90 mmHg] *HI* (07/24/15 9:49 AM) Mean Arterial 103 mmHg Pressure, Cuff (07/24/15 9:49 AM) Problem List Condition Effective Dates Status [...] ONCE A DAY, # 90 tabs, eRx: [facility] #[id number], TAKE ONE TABLET BY MOUTH ONCE A [...] A DAY, # 90 unknown unit, eRx: [facility] #[id number], TAKE ONE TABLET BY MOUTH ONCE A DAY Start Date: 07/03/15 Status: Ordered pravastatin 20 mg oral tablet See Instructions, TAKE ONE TABLET BY MOUTH ONCE A DAY, # 90 tabs, eRx: [facility] #[id number], TAKE ONE TABLET BY MOUTH ONCE A [...] (Rx) Start Date: 08/04/13 Status: Ordered Results Hematology Most recent to 1 oldest [Reference Range]: WBC [4.8-10.8 4.5 10*3/uL 10*3/uL] *LOW* (07/24/15 11:25 AM) RBC [4.00-5.20] 4.20 (07/24/15 11:25 AM) Hgb [12.0-16.0 13.0 gm/dL gm/dL] (07/24/15 11:25 AM) Hct [37.0-47.0 %] 38.3 % (07/24/15 11:25 AM) MCV [82.0-99.0 fL] 91.2 fL (07/24/15 11:25 AM) MCH [27.0-32.0 pg] 31.0 pg (07/24/15 11:25 AM) MCHC [32.0-36.0 33.9 gm/dL gm/dL] (07/24/15 11:25 AM) RDW [11.5-14.5 %] 12.2 % (07/24/15 11:25 AM) Platelet [150-400 279 10*3/uL 10*3/uL] (07/24/15 11:25 AM) MPV [8.8-14.8 fL] 12.3 fL (07/24/15 11:25 AM) Immature 0.2 % Granulocytes (07/24/15 11:25 AM) [0.0-1.0 %] Neutrophils [51-75 52 % %] (07/24/15 11:25 AM) Lymphocytes [20-46 36 % %] (07/24/1525 AM) Monocytes [4-11 %] 8 % (07/24/15 AM) Eosinophils [0-4 %] 3 % (07/24/15 AM) Basophils [0-2 %] 1 % (07/24/15 AM) Neutro Absolute 2.35 10*3 [1.90-7.00 10*3] (07/24/15 AM) Lymph Absolute 1.63 10*3 [0.80-3.30 10*3] (07/24/15:25 AM) [place] Absolute 0.37 10*3 [0.30-1.00 10*3] (07/24/15 AM) Eos Absolute 0.14 10*3 [0.00-0.50 10*3] (07/24/15 AM) Baso Absolute 0.03 10*3 [0.00-0.20 10*3] (07/24/15 AM) Chemistry Most recent to 1 oldest [Reference Range]: Sodium Lvl [135-144 138 mEq/L mEq/L] (07/24/15 AM) Potassium Lvl 3.9 mEq/L [3.5-5.2 mEq/L] (07/24/15 AM) Chloride [99-111 102 mEq/L mEq/L] (07/24/15 AM) CO2 [22-31 mEq/L] 29 mEq/L (07/24/15 AM) AGAP [3-20] 7 (07/24/15: AM) BUN [10-20 mg/dL] 11 mg/dL (07/24/15:25 AM) Glucose Lvl [70-99 88 mg/dL mg/dL] (07/24/15 AM) Creatinine Lvl 0.72 mg/dL [0.57-1.11 mg/dL] (07/24/15 AM) eGFR [>60 mL/min] >60 mL/min 1 (07/24/15 AM) Calcium Lvl 9.9 mg/dL [8.9-10.5 mg/dL] (5/24/16 11:25 AM) Albumin Lvl [3.4-4.8 4.5 gm/dL gm/dL] (07/24/15 11:25 AM) Total Protein 6.5 gm/dL [6.2-8.1 gm/dL] (07/24/15 11:25 AM) Globulin [1.8-4.0 2.0 gm/dL gm/dL] (07/24/15 11:25 AM) ALT [0-55 U/L] 18 U/L (07/24/15 11:25 AM) AST [5-34 U/L] 30 U/L (07/24/15 11:25 AM) Alk Phos [40-150 55 U/L U/L] (07/24/15: AM) Bili Total [0.2-1.2 0.5 mg/dL mg/dL] (07/24/15:25 AM) Chol [0-199 mg/dL] 184 mg/dL (07/24/15:25 AM) Trig [0-149 mg/dL] 77 mg/dL (07/24/15:25 AM) HDL [40-84 mg/dL] 71 mg/dL (07/24/15:25 AM) LDL [0-130 mg/dL] 98 mg/dL (07/24/15 11:25 AM) VLDL Cholesterol 15 mg/dL [0-28 mg/dL] (07/24/15 11:25 AM) Cardiac Risk 2.6 [0.0-5.0] (07/24/15 11:25 AM) TSH [0.35-4.94] 3.87 (07/24/15 11:25 AM) 1Result Comment: Multiply eGFR results by 1.21 for race. Urinalysis Most recent to 1 oldest [Reference Range]: UA Color Yellow (07/24/15 12:00 PM) UA Appear Clear (07/24/15 12:00 PM) UA pH [5.0-8.0] 7.5 (07/24/15 12:00 PM) UA Leuk Est Negative [Negative] (07/24/15 12:00 PM) UA Nitrite Negative [Negative] (07/24/15 12:00 PM) UA Protein Negative [Negative] (07/24/15 12:00 PM) UA Glucose Negative [Negative] (07/24/15 12:00 PM) UA Ketones Negative [Negative] (07/24/15 12:00 PM) UA Urobilinogen 0.2 mg/dL [<1.0 mg/dL] (07/24/15 12:00 PM) UA Bili [Negative] Negative (07/24/15 12:00 PM) UA Blood [Negative] Negative (07/24/15 12:00 PM) UA Spec Grav 1.008 [1.003-1.030] (07/24/15 12:00 PM) Type Clean Catch (07/24/15 12:00 PM) Immunizations Vaccine Date Refusal Reason influenza virus [...] Patient Education Author: Dereck Mcbride MD Date: 07/23 Family Medicine Benign Positional Vertigo Vertigo means you feel like you or your surroundings are moving when they are not. Benign positional vertigo is the most common form of vertigo. Benign means that the cause of your condition is not serious. Benign positional vertigo is more common in older adults. CAUSES Benign positional vertigo is the result of an upset in the labyrinth system. This is an area in the middle ear that helps control your balance. This may be caused by a viral infection, head injury, or repetitive motion. However, often no specific cause is found. SYMPTOMS Symptoms of benign positional vertigo occur when you move your head or eyes in different directions. Some of the symptoms may include: Loss of balance and falls. Vomiting. Blurred vision. Dizziness. Nausea. Involuntary eye movements (nystagmus). DIAGNOSIS Benign positional vertigo is usually diagnosed by physical exam. If the specific cause of your benign positional vertigo is unknown, your caregiver may perform imaging tests, such as magnetic resonance imaging (MRI) or computed tomography (CT). TREATMENT Your caregiver may recommend movements or procedures to correct the benign positional vertigo. Medicines such as meclizine, benzodiazepines, and medicines for nausea may be used to treat your symptoms. In rare cases, if your symptoms are caused by certain conditions that affect the inner ear, you may need surgery. HOME CARE INSTRUCTIONS Follow your caregiver's instructions. Move slowly. Do not make sudden body or head movements. Avoid driving. Avoid operating heavy machinery. Avoid performing any tasks that would be dangerous to you or others during a vertigo episode. Drink enough fluids to keep your urine clear or pale yellow. SEEK IMMEDIATE MEDICAL CARE IF: You develop problems with walking, weakness, numbness, or using your arms , hands, or legs. You have difficulty speaking. You develop severe headaches. Your nausea or vomiting continues or gets worse. You develop visual changes. Your family or friends notice any behavioral changes. Your condition gets worse. You have a fever. You develop a stiff neck or sensitivity to light. MAKE SURE YOU: Understand these instructions. Will watch your condition. Will get help right away if you are not doing well or get worse. This information is not intended to replace advice given to you by your health care provider. Make sure you discuss any questions you have with your health care provider. Document Released: 11/24/2006 Document Revised: 05/10/2012 Document Reviewed: ExitCare Patient Information 2015 [employer] [facility]. No follow up information was provided. Extracted from: Title: Female Physical Author: Dereck Mcbride MD Date: 07/24/15 Impression and Plan Diagnosis Benign essential hypertension (disorder) (QIT50-TS I10, Working, Medical). Visit for pelvic exam (PRN72-JC Z01.419, Working, Medical). Hypercholesterolemia (SQH87-WC E78.0, Working, Medical). Varicose veins of lower extremities with complications (STI81-VP I83.893, Working, Medical). Age related osteoporosis (WOF56-TC M81.0, Working, Medical). Venous stasis dermatitis (UEF76-LZ I87.2, Working, Medical). At high risk for pneumonia (ACT35-CD Z91.89, Working, Medical). BPPV (benign paroxysmal positional vertigo) (TIF25-AI H81.10, Working, Medical). Plan: 1) Healthy diet and daily exercise discussed--it helps most things. 2) Continue your present meds. 3) Prevnar 13 vaccine given today. 4) Non-fasting lab ordered today. 5) Twinrix vaccine series and Tdap recommended at the [facility]. 6) See me in 6 months and as needed. 7) Medicare screening breast and pelvic exam done today, post hysterectomy. 8) Marcos maneuvers--instruction sheet given.. Orders Orders (Selected) Outpatient Orders Ordered Office Visit Level 5 Est 93594: Pelvis and Breast exam- with or without exam G0101: pneumococcal 13-valent conjugate vaccine: 0.5 mL, IntraMuscular, Once Future (On Hold) Basic Metabolic Panel: CBC w/ Differential: CMP: Lipid Panel: Routine Urinalysis: TSH 3rd Generation: . Dx/Order Association Plan: Diagnosis: Age related osteoporosis Comment: Ordered: Office Visit Level 5 Est 71770; 07/24/15 10:58:00 CDT, Benign essential hypertension (disorder) | Age related osteoporosis | Hypercholesterolemia | BPPV (benign paroxysmal positional vertigo) | Venous stasis dermatitis Diagnosis: At high risk for pneumonia Comment: Ordered: pneumococcal 13-valent conjugate vaccine; 0.5 mL, IntraMuscular, Once, First Dose: 07/24/15 11:00:00 CDT, Stop Date: 07/24/15 11: 00:00 CDT Diagnosis: BPPV (benign paroxysmal positional vertigo) Comment: Ordered: Office Visit Level 5 Est 37918; 07/24/15 10:58:00 CDT, Benign essential hypertension (disorder) | Age related osteoporosis | Hypercholesterolemia | BPPV (benign paroxysmal positional vertigo) | Venous stasis dermatitis Diagnosis: Benign essential hypertension (disorder) Comment: Ordered: Office Visit Level 5 Est 52354; 07/24/15 10:58:00 CDT, Benign essential hypertension (disorder) | Age related osteoporosis | Hypercholesterolemia | BPPV (benign paroxysmal positional vertigo) | Venous stasis dermatitis Diagnosis: Hypercholesterolemia Comment: Ordered: Office Visit Level 5 Est 87438; 07/24/15 10:58:00 CDT, Benign essential hypertension (disorder) | Age related osteoporosis | Hypercholesterolemia | BPPV (benign paroxysmal positional vertigo) | Venous stasis dermatitis Diagnosis: Varicose veins of lower extremities with complications Comment: Diagnosis: Venous stasis dermatitis Comment: Ordered: Office Visit Level 5 Est 83504; 07/24/15 10:58:00 CDT, Benign essential hypertension (disorder) | Age related osteoporosis | Hypercholesterolemia | BPPV (benign paroxysmal positional vertigo) | Venous stasis dermatitis Diagnosis: Visit for pelvic exam Comment: Ordered: Pelvis and Breast exam- with or without exam G0101; 07/23 11:00:00 CDT, 1, Visit for pelvic exam Diagnosis: Hypercholesterolemia Comment: Diagnosis: Benign essential hypertension (disorder) Comment: Diagnosis: Hypercholesterolemia Comment: Diagnosis: Benign essential hypertension (disorder) Comment: Diagnosis: Hypercholesterolemia Comment: Diagnosis: Benign essential hypertension (disorder) Comment: End of Orders ."
--- OUTSIDE RECORDS SUMMARY | 2016-06-13 07:51 | XMS REPORT | Referral Summary ---
Author Author [facility] Organization [facility] Address Unknown Phone Unavailable Care Team Providers Care Reading Intervention Teacher Name Role Phone Jhony Mcbride Primary Care Physician [phone] Encounter VC Date(s): 06/28/14 - 06/28/14 [facility] [address] [place] [address] [place] [id number] [[email or web address] Discharge Diagnosis: SENILE OSTEOPOROSIS Discharge Disposition: 01-Home [...] # 90 unknown unit, 2 Refill(s), eRx: [facility] #[id number], TAKE ONE TABLET BY MOUTH ONCE A [...] DAY, # 90 tabs, 2 Refill(s), eRx: [facility] #[id number], TAKE ONE TABLET BY MOUTH ONCE A [...] ONCE A DAY, # 90 tabs, eRx: [facility] #[id number], TAKE ONE TABLET BY MOUTH ONCE A [...]
--- OUTSIDE RECORDS SUMMARY | 2016-06-13 07:51 | XMS REPORT | Referral Summary ---
Author Author [facility] Organization [facility] Address Unknown Phone Unavailable Care Team Providers Care Helpdesk Analyst Name Role Phone Jhony Mcbride Primary Care Physician [phone] Encounter VC Date(s): 04/07/16 - 04/07/16 [facility] [address] [place], [place] [address] Discharge Diagnosis: Left foot pain Discharge Diagnosis: Acquired hammer toe of left foot Discharge Disposition: 01-Home or Self Care Attending Physician: Vishal Lassiter DPM Admitting Physician: Vishal Lassiter DPM Vital Signs No data available for this section Problem List Condition Effective Dates Status Health Status Informant [place](Confirmed) 2001 Resolved Backache Active (finding)(Confirmed) Benign essential Active hypertension (disorder)(Confirmed ) BPPV (benign Active paroxysmal positional vertigo)(Confirmed) Bunion(Confirmed) 2001 Resolved Colon Resolved polyp(Confirmed) DDD (degenerative Active disc disease), lumbar(Confirmed) Left foot Active pain(Confirmed) High Resolved Cholesterol(Confirme d) Hypercholesterolemia Active (Confirmed) [...] DAY, # 90 tabs, 1 Refill(s), eRx: [facility] #[id number], TAKE ONE TABLET BY MOUTH ONCE A [...] # 90 unknown unit, 2 Refill(s), eRx: [facility] #[id number], TAKE ONE TABLET BY MOUTH ONCE A DAY Start Date: 10/02/15 Status: Ordered pravastatin 20 mg oral tablet See Instructions, TAKE ONE TABLET BY MOUTH ONCE A DAY, # 90 tabs, 3 Refill(s), eRx: [facility] #[id number], TAKE ONE TABLET BY MOUTH ONCE A [...] Extracted from: Title: Ambulatory Patient Education Author: Vishal Lassiter DPM Date: 04/07/16 Musculoskeletal Hammer Toes Hammer toes is a condition in which one or more of your toes is permanently flexed. CAUSES This happens when a muscle imbalance or abnormal bone length makes your small toes buckle. This causes the toe joint to contract and the strong cord-like bands that attach muscles to the bones (tendons) in your toes to shorten. SIGNS AND SYMPTOMS Common symptoms of flexible hammer toes include: A buildup of skin cells (corns). Corns occur where doc bumps come in frequent contact with hard surfaces. For example, where your shoes press and rub. Irritation. Inflammation. Pain. Limited motion in your toes. DIAGNOSIS Hammer toes are diagnosed through a physical exam of your toes. During the exam , your health care provider may try to reproduce your symptoms by manipulating your foot. Often, X-ray exams are done to determine the degree of deformity and to make sure that the cause is not a fracture. TREATMENT Hammer toes can be treated with corrective surgery. There are several types of surgical procedures that can treat hammer toes. The most common procedures include: ArthroplastyA portion of the joint is surgically removed and your toe is straightened. The gap fills in with fibrous tissue. This procedure helps treat pain and deformity and helps restore function. FusionCartilage between the two bones of the affected joint is taken out and the bones fuse together into one longer bone. This helps keep your toe stable and reduces pain but leaves your toe stiff, yet straight. ImplantationA portion of your bone is removed and replaced with an implant to restore motion. Flexor tendon transfersThis procedure repositions the tendons that curl the toes down (flexor tendons). This may be done to release the deforming force that causes your toe to buckle. Several of these procedures require fixing your toe with a pin that is visible at the tip of your toe. The pin keeps the toe straight during healing. Your health care provider will remove the pin usually within 48 weeks after the procedure. This information is not intended to replace advice given to you by your health care provider. Make sure you discuss any questions you have with your health care provider. Document Released: 02/13/2001 Document Revised: 02/21/2014 Document Reviewed: [employer] Interactive Patient Education 2016 [employer] No follow up information was provided. Extracted from: Title: Office Visit Note Author: Vishal Lassiter DPM Date: 04/07/16 Assessment/Plan 1.Left foot pain Left foot 3 views weight bearingx-ray today showedflexion deformity of left second digit. X-ray images were reviewed the patient. 2.Acquired hammer toe of left foot Etiology of hammertoe deformity was discussed with the patient. We discussed conservative measureincluding Silipos padding,softer material toebox shoe such as athletic shoe instead of leather material, and extra-depth toebox shoe versus surgicaloption. Patientwould like to proceed with surgical intervention in the form of left second digit arthrodesisand secondmetatarsophalangealjoint capsulotomyunder monitored anesthesia care. We discussed possible complications of the procedure inclusive of but not exclusive to; post operative infection of skin and bone, chronic swelling and continued pain, over or under correction of the deformity, recurrence of the deformity, post- surgical nerve entrapment, painful scar formation, delayed-union, mal-union, non -union of the osteotomy or arthrodesis site, damages to neurovascular structures , failure of internalfixation device, and DVT which can lead to PE and subsequent . The patient will be non weight bearing for four to six weeks post operatively and may allow partial weight bearing to heel thereafter. Patient will need a gait training nonweightbearing left foot. All questions were answered to patient's satisfaction. Patient states that she would like todiscuss this with her husbandand call the office backto schedule the surgery.
--- OUTSIDE RECORDS SUMMARY | 2016-06-13 07:51 | XMS REPORT | Referral Summary ---
Author Author [facility] Organization [facility] Address Unknown Phone Unavailable Care Team Providers Care Ham Curer Name Role Phone Jhony Mcbride Primary Care Physician [phone] Encounter VC Date(s): 06/26/15 - 06/26/15 [facility] [address] [place] [address] [place] [id number] Discharge Disposition: 01-Home or Self Care Attending Physician: Dereck Mcbride MD Admitting Physician: Dereck Mcbride MD Vital Signs Most recent to 1 oldest [Reference Range]: Temperature Tympanic 36.9 degC [36.6-38.1 degC] (06/26/15 11:02 AM) Peripheral Pulse 58 bpm Rate [60-100 bpm] *LOW* (06/26/15 11:02 AM) Blood Pressure 138/74 mmHg [90-140/60-90 mmHg] (06/26/15 11:02 AM) Problem List Condition Effective Dates Status [...] # 90 unknown unit, 2 Refill(s), eRx: [facility] #[id number], TAKE ONE TABLET BY MOUTH ONCE A [...] ONCE A DAY, # 90 tabs, eRx: [facility] #[id number], TAKE ONE TABLET BY MOUTH ONCE A [...] ONCE A DAY, # 90 tabs, eRx: [facility] #[id number], TAKE ONE TABLET BY MOUTH ONCE A [...] smoker Assessment and Plan Extracted from: Title: 8th dose Prolia Author: Maritza Gallagher RN Date: 06/26/15 Pt here for prolia - 8th dose given sc in left upper thigh. Pt denies any difficulties with previous injections. Appt. made for 2015 for 9th dose.
--- OUTSIDE RECORDS SUMMARY | 2016-06-13 07:51 | XMS REPORT | Referral Summary ---
Author Author [facility] Organization [facility] Address Unknown Phone Unavailable Care Team Providers Care Powerhouse Oiler Name Role Phone Jhony Mcbride Primary Care Physician [phone] Encounter VC Date(s): 01/01/16 - 01/01/16 [facility], [address] [place] [id number] Discharge Disposition: 01-Home or Self Care Attending Physician: Dereck Mcbride MD Admitting Physician: Dereck Mcbride MD Vital Signs Most recent to 1 oldest [Reference Range]: Peripheral Pulse 66 bpm Rate [60-100 bpm] (01/01/16 10:47 AM) Blood Pressure 135/75 mmHg [90-140/60-90 mmHg] (01/01/16 10:47 AM) SpO2 99 % (01/01/16 10:47 AM) Problem List Condition Effective Dates Status [...] DAY, # 90 tabs, 1 Refill(s), eRx: [facility] #[id number], TAKE ONE TABLET BY MOUTH ONCE A [...] # 90 unknown unit, 2 Refill(s), eRx: [facility] #[id number], TAKE ONE TABLET BY MOUTH ONCE A DAY Start Date: 10/02/15 Status: Ordered pravastatin 20 mg oral tablet See Instructions, TAKE ONE TABLET BY MOUTH ONCE A DAY, # 90 tabs, 3 Refill(s), eRx: [facility] #[id number], TAKE ONE TABLET BY MOUTH ONCE A [...] live 02/15/07 1Result Comment: [12/05/2015] High dose [facility] Procedures Procedure Date Related Diagnosis Body Site [...] 2006 rectocele Bunionectomy Rt 2002 Cataract left 2001 Hammertoe Surgery 2001 Eyelid Surgery 1995 Appendectomy [...]
[2016-06-13 08:00] VITALS: Ht 149.9 cm; Wt 63.3 kg
[2016-06-13 08:02] VITALS: BP 191/84; PULSE 52; RESP 13; TEMP 97.9; O2SAT 97
[2016-06-13 08:54] LABS: ANION GAP 11 MEQ/L (5-15); BUN/CREATININE RATIO 20 RATIO (6-26); CALCIUM 9.3 MG/DL (8.4-10.2); CHLORIDE 105 MEQ/L (98-107); CO2 - CARBON DIOXIDE 26 MEQ/L (22-30); CREATININE 0.7 MG/DL (0.7-1.2); GLOMERULAR FILTRATION RATE 80; GLUCOSE 91 MG/DL (65-110); SODIUM 142 MEQ/L (134-144)
[2016-06-13] MEDS ORDERED: FENTANYL 100mcg/2ml INJECTION IV ONE (09:00)
[2016-06-13] MEDS ORDERED: LIDOCAINE 1% (10mg/ml) 30ml SDV ONE (09:00)
[2016-06-13] MEDS ORDERED: BUPIVACAINE 0.5% (5mg/ml) 30ml INJ SDV ONE (09:00)
[2016-06-13] MEDS ORDERED: GLYCOPYRROLATE 0.4mg/2ml INJECTION IV ONE (09:00)
[2016-06-13] MEDS ORDERED: DEXAMETHASONE 4mg/ml - 1ml INJECTION ONE (09:00)
--- NOTE | 2016-06-13 09:04 | ANESPREOP ---
Anesthesia Record Date and Time DATE: 06/13/16 TIME: 09:02 Pre-Op Diagnosis painful left second hammertoe fusion Proposed Surgical Procedure LT 2ND HAMMERTOE FUSION NPO since: 2199 Allergies: Coded Allergies: enoxaparin (Unverified Allergy, Unknown, ELEVATED LIVER FUNCTION, 06/13/16) PER HISTORY Ht/Wt/BMI Height: 4 ' 11.00 " Weight: 63.300 kg BMI: 28.2 kg/m2 Vital Signs Date Time Temp Pulse Resp B/P Pulse Ox O2 Delivery O2 Flow Rate FiO2 06/13/16 08:02 97.9 52 13 191/84 97 Room Air Medications Inpatient Medications Current Medications Medications (Trade) Dose Ordered Sig/Che Start Time Stop Time Status Last Admin Dose Admin Lactated Ringer's (Lactated Ringers) 1,000 ml @ 50 mls/hr Q20H PRN 06/13/16 07:00 Ascorbic Acid (Vitamin C) 500 Mg Tablet, 500 MG PO DAILY, (Reported) Last Taken: on 06/03/16 Aspirin (Aspirin) 81 Mg Tablet, 81 MG PO DAILY, ( Reported) Last Taken: on 06/05/16 Bisoprol/Hydrochlorothiazide (Bisoprolol-Hctz 2.5- 6.25 Tab) 1 Tab Tablet, 1 TAB PO DAILY, (Reported) Last Taken: on 06/13/16 0600 Calcium Carbonate/Vitamin D3 (Calcium + D 600 Mg Tablet) 1 Tab Tablet, 1 TAB PO DAILY, (Reported) Last Taken: on 06/03/16 Multivitamins W-Minerals (Multivitamin) 1 Cap Capsule, 1 CAP PO DAILY, (Reported) Last Taken: on 06/03/16 Nifedipine (Nifediac Cc) 60 Mg Tablet.sa, 60 MG PO DAILY, (Reported) Last Taken: on 06/12/16 0600 Omeprazole (Omeprazole) 20 Mg Capsule.dr, 1 CAP PO DAILY, (Reported) Last Taken: on 06/13/16 0600 Pravastatin Sodium (Pravastatin Sodium) 20 Mg Tablet, 20 MG PO HS, (Reported) Last Taken: on 06/12/16 2030 Currently on Beta Dano: Yes Beta Dano Last Taken: bisoprolol PO 06/13/16 at 0600 Medical/Surgical History Anesthesia PMH: Reports: *Hypertension (uncontrolled HTN), Reflux, Denies: * Angina, *Diabetes, *Dyspnea, *[place], Anesthesia Reactions (NO AIRWAY/INTUBATION ISSUES KNOWN), Arthritis, Asthma, CHF, COPD, CVA/Stroke/TIA, Cancer, Clotting Problems, Deep Vein Thrombosis, Glaucoma, Hepatitis, Hiatal Hernia, Malignant Hyperthermia, Pneumonia, Renal Disease, Seizures, Sleep Apnea, Thyroid Disease, Tuberculosis Smoking Status: Never smoker Has pt. smoked today?: No Use Chewing Tobacco?: No Second Hand Exposure: No Substance Use Type: does not use Alcohol Intake: none HX of Last Menstrual Period: 1974 Past Surgical History Orthopedic Surgeries: Yes - R HAMMERTOE, R BUNIONECTOMY Abdominal Surgeries: Yes - APPY Genitourinary Surgeries: Yes - CYSTOCELE AND RECTOCELE Cardiac Surgeries: No Endocrine Surgeries: No Reproductive Surgeries: Yes - CHEIKH Neurological Surgeries: No Ear Surgeries: No Nose Surgeries: No Throat Surgeries: Yes - EGD, TONSILLECTOMY Other Surgeries: Yes - B CATARACTS, COLONOSCOPY, HEMORRHOIDECTOMY Anesthesia Adverse Reactions: FOUND none Family Hx of Anesthesia Advers: none Hx of Motion Sickness: No Pertinent Findings Laboratory Tests 06/13/16 08:37 EKG Rhythm: Sinus Rhythm Physical Exam Respiratory: Lungs clear Cardiovascular: FOUND Regular rate, rhythm, FOUND No murmur Airway Assessment Mallampati Score: II TMD: 3 Fingerbreadths Neck Extension: Good Teeth: Chipped Teeth/Crowns Overall Assessment: No Airway Concerns ASA: 3 Plan Anesthesia Plan: TIVA Discussion Discussed risks/options/alternatives of anesthesia and questions answered. Patient consents. Nursing pain assessment noted. Attestation Statement Prior to the delivery of any anesthetic medication, I examined the patient, developed the plan, obtained the patient's consent and discussed the risk and benefits of the procedure with the patient/guardian. THANIA ROBLEDO CRNA Jun 13, 2016 09:04
[2016-06-13] MEDS ORDERED: PROPOFOL 500mg 50 ML IV ONE (09:20)
[2016-06-13 09:49] VITALS: BP 162/74; PULSE 58; RESP 18; TEMP 97.3; O2SAT 98
[2016-06-13 10:15] VITALS: BP 167/77; PULSE 62; RESP 18; O2SAT 98
--- NOTE | 2016-06-13 10:21 | ANESPO ---
Post-Op Note Date 06/13/16 Time: 10:21 Status Pt Participated in Evaluation: Pt participated by phone Vital Signs Date Time Temp Pulse Resp B/P Pulse Ox O2 Delivery O2 Flow Rate FiO2 06/13/16 08:02 97.9 52 13 191/84 97 Room Air Respiratory Function: Airway patent, Regular respirations Cardiovascular Function: Regular pulse Mental Status: Alert/oriented Pain Level Intensity: 0 Hydration: Taking po fluids Complications during Recovery None apparent Follow-Up Instructions Instructions Per Surgeon THANIA ROBLEDO CRNA Jun 13, 2016 10:21
[2016-06-13 10:30] VITALS: BP 198/90; PULSE 54; RESP 16; O2SAT 97
--- NOTE | 2016-06-13 10:40 | DI ---
Indication: ITS.REASON: post op PROCEDURE: FOOT LEFT 2 VIEWS: Encounter: Initial Comparison: None Findings: Osteotomy in the distal aspect of the second toe proximal phalanx. No additional acute fracture or dislocation. Impression: Postoperative change. .
[2016-06-13 10:45] VITALS: BP 192/95; PULSE 58; RESP 18; TEMP 97.4; O2SAT 98
[2016-06-13] MEDS ORDERED: CEFAZOLIN 1 GRAM INJECTION IV ONE (10:45)
--- NOTE | 2016-06-13 19:22 | OPNOTEF ---
DATE OF PROCEDURE 06/13/2016 PREOPERATIVE DIAGNOSIS Stable second left hammertoe. POSTOPERATIVE DIAGNOSIS Stable second left hammertoe. OPERATION Arthroplasty of the DIPJ of the second digit, left foot. ANESTHESIA Local with IV sedation. SURGEON Edgar Beckwith DPM HEMOSTASIS Pneumatic ankle tourniquet. ESTIMATED BLOOD LOSS Minimal. MATERIALS None. PATHOLOGY Bone and soft tissue. COMPLICATIONS We planned on infusing the PIP joint of the second digit left foot. However, when trying to implant the hardware, the hardware itself was defective and I was unable to perform the fusion. A portion of the cortex of the proximal phalanx was removed when trying to attempt the fusion so unable to try another implant, so we performed an arthroplasty at this point in time. DESCRIPTION OF PROCEDURE Attention was directed to the PIP joint of the 2nd digit left foot where two 2-cm semi-elliptical longitudinal incisions were made over the proximal interphalangeal joint of the digit. The incisions were then deepened through the subcutaneous tissues with care being taken to retract all vital neurovascular structures. The ellipse of skin was removed with sharp and blunt dissection. All bleeders were cauterized and ligated as necessary. A transverse tenotomy and capsulotomy was then performed to the proximal interphalangeal joint of the digit of the foot. The head of the proximal phalanx was then freed of all its soft tissue attachments. A double action bone cutter was then used to resect the head of the proximal phalanx which was then passed from the operating room table. The phalanx was then smoothed of its rough edges with a bone rasp. The wound was then flushed with copious amounts of sterile normal saline and the extensor tendon was reapproximated with 4-0 Vicryl. Skin was reapproximated with 4-0 Prolene. SAHARA
== END 2016-06-13 10:48 | disposition home or self-care (01) ==
LOC: NSC 07:45
PROVIDERS: ATTEND Podiatrist
DX: M20.42 Other hammer toe(s) (acquired), left foot (principal); I10 Essential (primary) hypertension; K21.9 Gastro-esophageal reflux disease without esophagitis; M81.0 Age-related osteoporosis without current pathological fracture; Z79.82 Long term (current) use of aspirin; Z79.899 Other long term (current) drug therapy; Z88.8 Allergy status to other drugs, medicaments and biological substances; Z90.710 Acquired absence of both cervix and uterus; Z86.010 Personal history of colon polyps
CPT/HCPCS: 28285; 36415; 73620; 80048; J0690; J1100